=== PATIENT | male | born 1935 | race Asian ===

== ENCOUNTER 2019-11-28 19:23 | Inpatient (IN) | payer MEDICARE, MEDICAID ==
[~2019-11-28] VITALS: Ht 172.7 cm; Wt 83.0 kg
[2019-11-28 20:19] LABS: BASOPHILS % 0.6 % (0.0-2.0); HEMOGLOBIN. 13.9 g/dL (14.0-18.0); LYMPHOCYTES % 25.3 % (20.0-50.0); MEAN CORPUSCULAR HEMOGLOBIN 32.3 pg (28.0-32.0); MEAN CORPUSCULAR VOLUME 97.6 fL (80.0-94.0); MEAN PLATELET VOLUME 8.5 fl (7.4-10.4); MONOCYTES % 8.9 % (2.0-8.0); NEUTROPHILS % 64.2 % (40.0-76.0); PLATELET 218 x1000/uL (130-400); RED CELL DISTRIBUTION WIDTH 13.4 % (11.6-14.6)
[2019-11-28 20:25] LABS: CHLORIDE 108 mEq/L (98-107)
[2019-11-28 20:27] LABS: PROTHROMBIN TIME 10.9 sec (9.6-11.0)
[2019-11-28] MEDS ORDERED: SODIUM CHLORIDE 0.9% 250 ML IV ONE (21:00)
[2019-11-28] MEDS ORDERED: MORPHINE SULFATE 2 MG/ML CPJ (NOT FOR IM USE) IV PRN (22:30)
[2019-11-28] MEDS ORDERED: DOCUSATE SODIUM 100MG CAPSULE PO PRN (22:30)
[2019-11-28] MEDS ORDERED: IPRATROPIUM/ALBUTEROL 0.5-3(2.5)MG/3ML NEB HHN PRN (22:30)
[2019-11-28] MEDS ORDERED: HYDROCODONE/ACETAMINOPHEN 10/325MG TABLET PO PRN (22:30)
[2019-11-28] MEDS ORDERED: ONDANSETRON HCL 4MG/2ML INJ IV PRN (22:30)
[2019-11-28] MEDS: ENOXAPARIN 40MG/0.4ML SYR SUBCUT SCH (22:30)
[2019-11-28] MEDS ORDERED: MAGNESIUM/ALUMINUM HYDROXIDE/SIMETHICONE 30ML UDC PO PRN (22:30)
[2019-11-28] MEDS ORDERED: GUAIFENESIN 200MG/10ML SUGAR FREE UDC PO PRN (22:30)
[2019-11-28] MEDS ORDERED: DIPHENHYDRAMINE 50MG/ML VIAL IV PRN (22:30)
[2019-11-28] MEDS ORDERED: ACETAMINOPHEN 325MG TABLET PO PRN (22:30)
[2019-11-28] MEDS ORDERED: CLONIDINE 0.1MG TABLET PO PRN (22:30)
[2019-11-28] MEDS ORDERED: LORAZEPAM 2MG/ML CPJ IV PRN (22:30)
[2019-11-28] MEDS: FUROSEMIDE 40MG/4ML VIAL IVP SCH (23:10)
[2019-11-28] MEDS: DILTIAZEM HCL 30MG TABLET PO SCH (23:10)
[2019-11-28] MEDS: ENOXAPARIN 80MG/0.8ML SYR SUBCUT SCH (23:11)
[2019-11-28] MEDS ORDERED: IOHEXOL-350 100 ML BOTTLE ONE (23:16)
[2019-11-28 23:45] LABS: CLARITY URINE CLEAR (CLEAR); COLOR URINE DARK YELLOW (YELLOW); KETONES URINE NEGATIVE (NEGATIVE); LEUKOCYTE ESTERASE URINE NEGATIVE (NEGATIVE); NITRITE URINE NEGATIVE (NEGATIVE); OCCULT BLOOD URINE NEGATIVE (NEGATIVE); PH URINE 5.5 (4.5-8.0); PROTEIN URINE 2+ (NEGATIVE); SPECIFIC GRAVITY URINE 1.033 (1.005-1.030)
[2019-11-29] VITALS (12 sets, daily range): BP systolic 104–153; BP diastolic 47–85
[2019-11-29] MEDS: DILTIAZEM HCL 30MG TABLET PO SCH ×2 (06:34)
[2019-11-29] MEDS: SODIUM CHLORIDE 0.9% INJ 3ML FLUSH IVF SCH ×3 (06:35→21:01)
[2019-11-29 09:00] LABS: BASOPHILS % 0.4 % (0.0-2.0); EOSINOPHILS % 0.8 % (0.0-5.0); HEMATOCRIT. 40.6 % (42.0-52.0); HEMOGLOBIN. 13.6 g/dL (14.0-18.0); LYMPHOCYTES % 24.9 % (20.0-50.0); MEAN CORPUSCULAR HEMOGLOBIN 32.7 pg (28.0-32.0); MEAN CORPUSCULAR VOLUME 97.8 fL (80.0-94.0); MEAN PLATELET VOLUME 8.5 fl (7.4-10.4); MONOCYTES % 9.2 % (2.0-8.0); NEUTROPHILS % 64.7 % (40.0-76.0); PLATELET 219 x1000/uL (130-400); RED BLOOD CELL COUNT 4.16 mill/uL (4.7-6.1); RED CELL DISTRIBUTION WIDTH 13.2 % (11.6-14.6)
[2019-11-29 09:09] LABS: CHLORIDE 109 mEq/L (98-107)
[2019-11-29] MEDS: ENOXAPARIN 80MG/0.8ML SYR SUBCUT SCH ×2 (09:15→21:01)
[2019-11-29] MEDS: FUROSEMIDE 40MG/4ML VIAL IVP SCH ×2 (09:15→17:57)
[2019-11-29 09:21] LABS: CREATINE KINASE 187 IU/L (39-308)
[2019-11-29 09:24] LABS: CREATINE KINASE MB FRACTION 4.2 ng/mL (0.5-3.6)
[2019-11-29 10:56] LABS: HEPATITIS B SURFACE ANTIGEN NEGATIVE
[2019-11-29 11:26] LABS: HEPATITIS A AB IGM NEGATIVE (NEGATIVE)
[2019-11-29] MEDS: METOPROLOL TARTRATE 25MG TABLET PO SCH ×2 (12:30→21:00)
[2019-11-29] MEDS: DILTIAZEM HCL 60MG TABLET PO SCH ×3 (12:46→23:25)
[2019-11-29 16:26] LABS: CREATINE KINASE MB FRACTION 4.4 ng/mL (0.5-3.6)
[2019-11-29] MEDS ORDERED: DIGOXIN 500MCG/2ML AMP IV SCH (18:00)
[2019-11-30] VITALS (12 sets, daily range): BP systolic 91–121; BP diastolic 50–86
[2019-11-30] MEDS: DILTIAZEM HCL 60MG TABLET PO SCH ×3 (05:37→18:26)
[2019-11-30] MEDS: FUROSEMIDE 40MG/4ML VIAL IVP SCH (06:05)
[2019-11-30] MEDS: SODIUM CHLORIDE 0.9% INJ 3ML FLUSH IVF SCH ×3 (06:06→21:38)
[2019-11-30] MEDS: ENOXAPARIN 80MG/0.8ML SYR SUBCUT SCH ×2 (08:32→21:38)
[2019-11-30 09:31] LABS: HEMATOCRIT 38.4 % (42.0-52.0); MEAN CORPUSCULAR HEMOGLOBIN 32.9 pg (28.0-32.0); MEAN CORPUSCULAR VOLUME 97.4 fL (80.0-94.0); PLATELET 204 x1000/uL (130-400); RED BLOOD CELL COUNT 3.94 mill/uL (4.7-6.1); RED CELL DISTRIBUTION WIDTH 13.2 % (11.6-14.6)
[2019-11-30 12:59] LABS: CREATINE KINASE 250 IU/L (39-308)
[2019-11-30] MEDS ORDERED: IPRATROPIUM/ALBUTEROL 0.5-3(2.5)MG/3ML NEB HHN PRN (15:15)
[2019-11-30] MEDS ORDERED: DOCUSATE SODIUM 100MG CAPSULE PO PRN (17:00)
[2019-11-30] MEDS ORDERED: ONDANSETRON HCL 4MG/2ML INJ IV PRN (17:00)
[2019-11-30] MEDS ORDERED: MAGNESIUM/ALUMINUM HYDROXIDE/SIMETHICONE 30ML UDC PO PRN (17:00)
[2019-11-30] MEDS ORDERED: LORAZEPAM 2MG/ML CPJ IV PRN (17:00)
[2019-11-30] MEDS ORDERED: HYDROCODONE/ACETAMINOPHEN 10/325MG TABLET PO PRN (17:00)
[2019-11-30] MEDS ORDERED: CLONIDINE 0.1MG TABLET PO PRN (17:00)
[2019-11-30] MEDS ORDERED: DIPHENHYDRAMINE 50MG/ML VIAL IV PRN (17:00)
[2019-11-30] MEDS ORDERED: ACETAMINOPHEN 325MG TABLET PO PRN (17:00)
[2019-11-30] MEDS ORDERED: GUAIFENESIN 200MG/10ML SUGAR FREE UDC PO PRN (17:00)
[2019-11-30] MEDS ORDERED: MORPHINE SULFATE 2 MG/ML CPJ (NOT FOR IM USE) IV PRN (17:00)
[2019-12-01] VITALS (8 sets, daily range): BP systolic 98–119; BP diastolic 54–76
[2019-12-01] MEDS: DILTIAZEM HCL 60MG TABLET PO SCH ×3 (05:56→12:03)
[2019-12-01] MEDS: SODIUM CHLORIDE 0.9% INJ 3ML FLUSH IVF SCH ×2 (05:56→13:19)
[2019-12-01 06:53] LABS: CHLORIDE 105 mEq/L (98-107)
[2019-12-01 07:02] LABS: BASOPHILS % 0.8 % (0.0-2.0); EOSINOPHILS % 3.6 % (0.0-5.0); HEMATOCRIT. 39.2 % (42.0-52.0); HEMOGLOBIN. 13.1 g/dL (14.0-18.0); LYMPHOCYTES % 39.3 % (20.0-50.0); MEAN CORPUSCULAR HEMOGLOBIN 32.6 pg (28.0-32.0); MEAN CORPUSCULAR VOLUME 97.5 fL (80.0-94.0); MEAN PLATELET VOLUME 8.9 fl (7.4-10.4); MONOCYTES % 9.7 % (2.0-8.0); NEUTROPHILS % 46.6 % (40.0-76.0); PLATELET 197 x1000/uL (130-400); RED BLOOD CELL COUNT 4.02 mill/uL (4.7-6.1); RED CELL DISTRIBUTION WIDTH 13.2 % (11.6-14.6)
[2019-12-01] MEDS: ENOXAPARIN 80MG/0.8ML SYR SUBCUT SCH (08:36)
== END 2019-12-01 17:30 | disposition home or self-care (01) | DRG 291 ==
LOC: ER 19:23 → EDBEDREQ 19:58 → 5EST 21:43 → EDBEDREQ 21:52 → EDBEDREQTM 21:52 → ENRESERV 21:59 → 5WST 12-01 09:16
PROVIDERS: ADMIT Internal Medicine; ATTEND Internal Medicine
DX: I11.0 Hypertensive heart disease with heart failure (principal); J96.00 Acute respiratory failure, unspecified whether with hypoxia or hypercapnia; J90 Pleural effusion, not elsewhere classified; E87.2 Acidosis; E46 Unspecified protein-calorie malnutrition; N17.9 Acute kidney failure, unspecified; I31.3 Pericardial effusion (noninflammatory); R65.10 Systemic inflammatory response syndrome (SIRS) of non-infectious origin without acute organ dysfunction; I50.33 Acute on chronic diastolic (congestive) heart failure; I48.91 Unspecified atrial fibrillation; R59.0 Localized enlarged lymph nodes; R74.01 Elevation of levels of liver transaminase levels; J44.9 Chronic obstructive pulmonary disease, unspecified; I77.819 Aortic ectasia, unspecified site; M54.5 Low back pain; Z20.828 Contact with and (suspected) exposure to other viral communicable diseases; D64.9 Anemia, unspecified; M48.061 Spinal stenosis, lumbar region without neurogenic claudication; Z68.27 Body mass index [BMI] 27.0-27.9, adult; Z79.899 Other long term (current) drug therapy
CPT/HCPCS: 36415; 71045; 71275; 72148; 76604; 76700; 80048; 80053; 80076; 81003; 82550; 82553; 83605; 83880; 84145; 84484; 85025; 85027; 86705; 86709; 86803; 87340; 87426; 93005; 93306; 93970; 97161; 99291; J1160; J1200; J1650; J1940; Q9967

== ENCOUNTER 2020-04-04 11:02 | Inpatient (IN) | payer MEDICARE, MEDICAID ==
[~2020-04-04] VITALS: Ht 182.9 cm; Wt 78.3 kg
[2020-04-04 11:59] LABS: BASOPHILS % 1.2 % (0.0-2.0); EOSINOPHILS % 1.1 % (0.0-5.0); HEMATOCRIT. 41.4 % (42.0-52.0); HEMOGLOBIN. 13.1 g/dL (14.0-18.0); LYMPHOCYTES % 25.1 % (20.0-50.0); MEAN CORPUSCULAR HEMOGLOBIN 25.5 pg (28.0-32.0); MEAN CORPUSCULAR VOLUME 80.8 fL (80.0-94.0); MEAN PLATELET VOLUME 9.1 fl (7.4-10.4); MONOCYTES % 13.7 % (2.0-8.0); NEUTROPHILS % 58.9 % (40.0-76.0); PLATELET 145 x1000/uL (130-400); RED BLOOD CELL COUNT 5.12 mill/uL (4.7-6.1)
[2020-04-04 12:10] LABS: CHLORIDE 110 mEq/L (98-107)
[2020-04-04] MEDS ORDERED: FUROSEMIDE 40MG/4ML VIAL IVP ONE (12:45)
[2020-04-04] MEDS ORDERED: CLONIDINE 0.1MG TABLET PO PRN (15:00)
[2020-04-04] MEDS ORDERED: MORPHINE SULFATE 2 MG/ML CPJ (NOT FOR IM USE) IV PRN (15:00)
[2020-04-04] MEDS ORDERED: ACETAMINOPHEN 325MG TABLET PO PRN (15:00)
[2020-04-04] MEDS ORDERED: MAGNESIUM/ALUMINUM HYDROXIDE/SIMETHICONE 30ML UDC PO PRN (15:00)
[2020-04-04] MEDS ORDERED: ONDANSETRON HCL 4MG/2ML INJ IV PRN (15:00)
[2020-04-04] MEDS ORDERED: LISINOPRIL 10MG TABLET PO SCH (16:00)
[2020-04-04] MEDS: PIPERACILLIN/TAZ 3.375G PREMIX 50 ML IV SCH (16:21)
[2020-04-04] MEDS: ENOXAPARIN 80MG/0.8ML SYR SUBCUT SCH (17:05)
[2020-04-04] MEDS ORDERED: FUROSEMIDE 40MG/4ML VIAL IV SCH (17:15)
[2020-04-04 17:44] LABS: BG BASE EXCESS 0.1 mmol/L (-2.0-2.0); BG CARBOXYHEMOGLOBIN 1.6 % (0.5-1.5); BG DEOXYHEMOGLOBIN 6.2 % (0.0-5.0); BG FRACTION INSPIRED OXYGEN 21; BG HCO3 ACT 23.5 mmol/L (22.0-26.0); BG METHEMOGLOBIN 0.2 % (0.0-1.5); BG OXYGEN SATURATION 93.7 % (92.0-98.5); BG PCO2 34.3 mmHg (35.0-45.0); BG PH 7.453 (7.350-7.450); BG PO2 68.8 mmHg (75.0-100.0); BG SAMPLE SITE RIGHT RADIAL; BG TOTAL HEMOGLOBIN 13.6 g/dL (12.0-18.0); BG VENT MODE ROOM AIR
[2020-04-04] MEDS: POTASSIUM CHLORIDE 20MEQ TABLET SR PO SCH (18:40)
[2020-04-04] MEDS: FUROSEMIDE 40MG/4ML VIAL IV SCH (20:00)
[2020-04-04] MEDS: CARVEDILOL 3.125 MG TABLET PO SCH (21:00)
[2020-04-04] MEDS ORDERED: DILTIAZEM HCL 30MG TABLET PO SCH (22:00)
[2020-04-05] MEDS: PIPERACILLIN/TAZ 3.375G PREMIX 50 ML IV SCH
[2020-04-05 04:36] VITALS: BP 134/85
[2020-04-05] MEDS: ENOXAPARIN 80MG/0.8ML SYR SUBCUT SCH ×2 (05:18→18:14)
[2020-04-05 08:00] VITALS: BP 112/55
[2020-04-05] MEDS: FUROSEMIDE 40MG/4ML VIAL IV SCH (08:11)
[2020-04-05] MEDS: CARVEDILOL 3.125 MG TABLET PO SCH ×2 (08:51→21:00)
[2020-04-05] MEDS: POTASSIUM CHLORIDE 20MEQ TABLET SR PO SCH (08:51)
[2020-04-05] MEDS: PIPERACILLIN/TAZOBACTAM 3.375 G in DEXT 5% WATER 100 ML IV SCH ×3 (08:51→23:27)
[2020-04-05] MEDS ORDERED: FUROSEMIDE 40MG/4ML VIAL IV SCH (09:00)
[2020-04-05 10:00] VITALS: BP 125/80
[2020-04-05 10:24] LABS: BASOPHILS % 0.8 % (0.0-2.0); EOSINOPHILS % 1.4 % (0.0-5.0); HEMATOCRIT. 41.4 % (42.0-52.0); HEMOGLOBIN. 13.1 g/dL (14.0-18.0); LYMPHOCYTES % 30.5 % (20.0-50.0); MEAN CORPUSCULAR HEMOGLOBIN 25.8 pg (28.0-32.0); MEAN CORPUSCULAR VOLUME 81.6 fL (80.0-94.0); MEAN PLATELET VOLUME 9.8 fl (7.4-10.4); MONOCYTES % 9.5 % (2.0-8.0); NEUTROPHILS % 57.8 % (40.0-76.0); PLATELET 166 x1000/uL (130-400); RED BLOOD CELL COUNT 5.08 mill/uL (4.7-6.1); RED CELL DISTRIBUTION WIDTH 19.8 % (11.6-14.6)
[2020-04-05 10:29] LABS: INR 1.5; PROTHROMBIN TIME 15.1 sec (9.6-11.0)
[2020-04-05 10:37] LABS: CHLORIDE 109 mEq/L (98-107)
[2020-04-05 10:44] LABS: LDL CHOLESTEROL 74 mg/dL (5-100)
[2020-04-05 10:45] LABS: HDL CHOLESTEROL 25 mg/dL (40-59)
[2020-04-05 11:00] LABS: DIGOXIN 0.5 ng/mL (0.9-2.0)
[2020-04-05 11:04] LABS: VITAMIN B12 SERUM >2000 pg/mL pg/mL (211-911)
[2020-04-05 12:00] VITALS: BP 105/67
[2020-04-05] MEDS: LACTULOSE 20G/30ML UDC PO SCH ×2 (14:49→21:08)
[2020-04-05 16:00] VITALS: BP 103/98
[2020-04-05 20:00] VITALS: BP 109/73
[2020-04-06] VITALS: BP 117/83
[2020-04-06 04:00] VITALS: BP 117/75
[2020-04-06] MEDS: ENOXAPARIN 80MG/0.8ML SYR SUBCUT SCH (05:23)
[2020-04-06] MEDS: LACTULOSE 20G/30ML UDC PO SCH ×3 (05:23→21:13)
[2020-04-06 05:51] LABS: BASOPHILS % 1.3 % (0.0-2.0); EOSINOPHILS % 1.8 % (0.0-5.0); HEMATOCRIT. 40.4 % (42.0-52.0); HEMOGLOBIN. 12.9 g/dL (14.0-18.0); LYMPHOCYTES % 25.3 % (20.0-50.0); MEAN CORPUSCULAR HEMOGLOBIN 25.9 pg (28.0-32.0); MEAN CORPUSCULAR VOLUME 81.4 fL (80.0-94.0); MEAN PLATELET VOLUME 9.8 fl (7.4-10.4); MONOCYTES % 11.4 % (2.0-8.0); NEUTROPHILS % 60.2 % (40.0-76.0); PLATELET 151 x1000/uL (130-400); RED BLOOD CELL COUNT 4.96 mill/uL (4.7-6.1); RED CELL DISTRIBUTION WIDTH 20.2 % (11.6-14.6)
[2020-04-06 05:54] LABS: INR 1.4; PROTHROMBIN TIME 14.2 sec (9.6-11.0)
[2020-04-06 09:00] VITALS: BP 110/65
[2020-04-06] MEDS: POTASSIUM CHLORIDE 20MEQ TABLET SR PO SCH (09:00)
[2020-04-06] MEDS ORDERED: SODIUM BICARBONATE 4% (2.4MEQ) 5ML VIAL IV ONE (09:42)
[2020-04-06] MEDS ORDERED: POTASSIUM CHLORIDE 20MEQ TABLET SR PO NR (10:00)
[2020-04-06 10:10] LABS: ANTI-NUCLEAR ANTIBODIES DIRECT Negative (Negative)
[2020-04-06] MEDS: PIPERACILLIN/TAZOBACTAM 3.375 G in DEXT 5% WATER 100 ML IV SCH ×2 (11:48→16:57)
[2020-04-06] MEDS: CARVEDILOL 3.125 MG TABLET PO SCH ×2 (11:49→21:12)
[2020-04-06 12:00] VITALS: BP 114/64
[2020-04-06] MEDS ORDERED: ALBUMIN HUMAN 25GM/100ML (25%) IV NR (12:00)
[2020-04-06 13:10] LABS: A/G RATIO 0.8 (0.7-1.7); ALBUMIN 2.7 g/dL (2.9-4.4); ALPHA-1-GLOBULIN 0.3 g/dL (0.0-0.4); ALPHA-2-GLOBULIN 0.5 g/dL (0.4-1.0); BETA GLOBULIN 1.2 g/dL (0.7-1.3); GAMMA GLOBULINS 1.5 g/dL (0.4-1.8); GLOBULIN TOTAL 3.5 g/dL (2.2-3.9); M-SPIKE Not Observed g/dL (Not Observed); TOTAL PROTEIN SERUM 6.2 g/dL (6.0-8.5)
[2020-04-06] MEDS ORDERED: TUBERCULIN,PURIF.PROT.DERIV. 5 TU/0.1 ML SYR ID ONE (13:45)
[2020-04-06 16:00] VITALS: BP 101/68
[2020-04-06 20:00] VITALS: BP 118/60
[2020-04-06] MEDS ORDERED: ENOXAPARIN 60MG/0.6ML SYR SUBCUT NR (21:00)
[2020-04-07] VITALS: BP 112/79
[2020-04-07] MEDS: PIPERACILLIN/TAZOBACTAM 3.375 G in DEXT 5% WATER 100 ML IV SCH ×2 (00:14→08:58)
[2020-04-07 04:00] VITALS: BP 136/73
[2020-04-07] MEDS: LACTULOSE 20G/30ML UDC PO SCH ×2 (05:49→13:35)
[2020-04-07 06:57] LABS: BASOPHILS % 1.2 % (0.0-2.0); EOSINOPHILS % 1.4 % (0.0-5.0); HEMATOCRIT. 40.2 % (42.0-52.0); HEMOGLOBIN. 12.6 g/dL (14.0-18.0); LYMPHOCYTES % 29.6 % (20.0-50.0); MEAN CORPUSCULAR HEMOGLOBIN 25.3 pg (28.0-32.0); MEAN PLATELET VOLUME 9.8 fl (7.4-10.4); MONOCYTES % 10.8 % (2.0-8.0); PLATELET 150 x1000/uL (130-400); RED BLOOD CELL COUNT 4.97 mill/uL (4.7-6.1); RED CELL DISTRIBUTION WIDTH 19.8 % (11.6-14.6)
[2020-04-07 07:01] LABS: CHLORIDE 111 mEq/L (98-107)
[2020-04-07 08:00] VITALS: BP 111/78
[2020-04-07] MEDS: CARVEDILOL 3.125 MG TABLET PO SCH (08:57)
[2020-04-07] MEDS: POTASSIUM CHLORIDE 20MEQ TABLET SR PO SCH (08:57)
[2020-04-07] MEDS ORDERED: ENOXAPARIN 80MG/0.8ML SYR SUBCUT SCH (09:00)
[2020-04-07] MEDS ORDERED: MULTIVITAMINS,THER W-MINERALS TABLET PO SCH (11:00)
[2020-04-07 12:00] VITALS: BP 99/68
[2020-04-07 13:46] VITALS: BP 99/68
[2020-04-07 18:54] LABS: PHOSPHORUS 3.8 mg/dL (2.5-4.9)
[2020-04-08 09:10] LABS: HIV SCREEN 4G Non Reactive (Non Reactive)
[2020-04-08 17:06] LABS: QFT MITOGEN VALUE 9.78 IU/mL (.); QFT TB GOLD PLUS Negative (Negative); QFT TB1 AG VALUE 0.34 IU/mL (.)
[2020-04-09 17:09] LABS: ANGIOTENSION CONVERTING ENZYME 80 U/L (14-82)
[2020-04-10 17:06] LABS: ACTIN (SMOOTH MUSCLE) ANTIBODY 22 Units (0-19); ANTI-MYELOPEROXIDASE AB < 9.0 U/mL (0.0-9.0); ANTI-PROTEINASE 3 ABS < 3.5 U/mL (0.0-3.5)
[2020-04-11 13:07] LABS: ATYPICAL P-ANCA <1:20 titer (Neg:<1:20); CYTOPLASMIC C-ANCA <1:20 titer (Neg:<1:20); PERINUCLEAR P-ANCA <1:20 titer (Neg:<1:20)
[2020-04-12 04:09] LABS: CYC CITRULLINATED PEP IgG/IgA 6 units (0-19)
[2020-04-20] MEDS ORDERED: SPIR25TA PO (12:16)
[2020-04-20] MEDS ORDERED: FURO-151 MT (12:16)
[2020-05-02] MEDS ORDERED: SULF1TAB48 PO ×2 (12:20→12:43)
== END 2020-04-07 14:00 | disposition home health service (06) | DRG 291 ==
LOC: ER 11:02 → MICUSO 13:42 → 5EST 04-05 02:18 → 8WST 04-05 11:20
PROVIDERS: ADMIT Hospitalist; ATTEND Hospitalist
PROC: 0W993ZZ Drainage of Right Pleural Cavity, Percutaneous Approach (ICD-10-PCS; principal; 2020-04-06)
DX: I11.0 Hypertensive heart disease with heart failure (principal); J96.01 Acute respiratory failure with hypoxia; E43 Unspecified severe protein-calorie malnutrition; N17.9 Acute kidney failure, unspecified; I31.3 Pericardial effusion (noninflammatory); D68.59 Other primary thrombophilia; D68.4 Acquired coagulation factor deficiency; R18.8 Other ascites; J91.8 Pleural effusion in other conditions classified elsewhere; I50.33 Acute on chronic diastolic (congestive) heart failure; J44.9 Chronic obstructive pulmonary disease, unspecified; K75.81 Nonalcoholic steatohepatitis (NASH); I48.91 Unspecified atrial fibrillation; I27.81 Cor pulmonale (chronic); I25.10 Atherosclerotic heart disease of native coronary artery without angina pectoris; K74.60 Unspecified cirrhosis of liver; T50.2X5A Adverse effect of carbonic-anhydrase inhibitors, benzothiadiazides and other diuretics, initial encounter; D64.9 Anemia, unspecified; K80.20 Calculus of gallbladder without cholecystitis without obstruction; Z20.822 Contact with and (suspected) exposure to COVID-19; Z68.23 Body mass index [BMI] 23.0-23.9, adult; Z79.899 Other long term (current) drug therapy; Z79.01 Long term (current) use of anticoagulants; R59.0 Localized enlarged lymph nodes
CPT/HCPCS: 32555; 36415; 71045; 71250; 76700; 80048; 80053; 80061; 80162; 82040; 82105; 82140; 82164; 82248; 82378; 82390; 82607; 82728; 82962; 83520; 83540; 83550; 83615; 83735; 83880; 84100; 84153; 84155; 84165; 84484; 85025; 86038; 86160; 86200; 86256; 86301; 86431; 86480; 87389; 87426; 88108; 88312; 90585; 93005; 93306; 93970; 96372; 99285; J1650; J1940; J2543; J3490; J7060; P9047; A4315; G0103

== ENCOUNTER 2020-04-11 09:22 | Inpatient (IN) | payer MEDICARE, MEDICAID ==
[2020-04-11] VITALS (55 sets, daily range): BP systolic 66–164; BP diastolic 22–105
[~2020-04-11] VITALS: Ht 188 cm; Wt 83.5 kg
[2020-04-11] MEDS ORDERED: BETAMETHASONE ACET/BETAMET 30 MG/5 ML VIAL IM ONE (10:07)
[2020-04-11] MEDS ORDERED: BACITRACIN 50,000 UNITS/VIAL ONE (10:08)
[2020-04-11] MEDS ORDERED: TETRACAINE/BENZOCAINE/BUTAMBEN 20 GM SPRAY MM ONE (10:09)
[2020-04-11 10:18] LABS: BASOPHILS % 1.1 % (0.0-2.0); EOSINOPHILS % 1.5 % (0.0-5.0); HEMATOCRIT. 41.6 % (42.0-52.0); HEMOGLOBIN. 12.8 g/dL (14.0-18.0); LYMPHOCYTES % 29.3 % (20.0-50.0); MEAN CORPUSCULAR VOLUME 81.2 fL (80.0-94.0); MEAN PLATELET VOLUME 9.3 fl (7.4-10.4); MONOCYTES % 10.6 % (2.0-8.0); NEUTROPHILS % 57.5 % (40.0-76.0); PLATELET 146 x1000/uL (130-400); RED BLOOD CELL COUNT 5.13 mill/uL (4.7-6.1); RED CELL DISTRIBUTION WIDTH 20.7 % (11.6-14.6)
[2020-04-11 10:19] LABS: CHLORIDE 109 mEq/L (98-107)
[2020-04-11 10:24] LABS: INR 1.3; PARTIAL THROMBOPLASTIN TIME 33.7 sec (23.4-31.0); PROTHROMBIN TIME 13.3 sec (9.6-11.0)
[2020-04-11] MEDS ORDERED: MORPHINE SULFATE/PF 1MG/ML 10ML AMP ONE (11:22)
[2020-04-11] MEDS ORDERED: ROCURONIUM BROMIDE 10MG/ML VIAL 5ML IV ONE (11:36)
[2020-04-11] MEDS ORDERED: CEFAZOLIN SODIUM 1000MG/VIAL ONE (12:20)
[2020-04-11] MEDS ORDERED: VECURONIUM BROMIDE 10 MG/VIAL IV ONE (12:21)
[2020-04-11] MEDS ORDERED: AMIODARONE HCL 50MG/ML 3ML VIAL IV ONE (12:25)
[2020-04-11] MEDS ORDERED: ALBUMIN HUMAN 12.5G/250ML (5%) IV ONE (12:25)
[2020-04-11] MEDS ORDERED: CALCIUM CHLORIDE 1GM/10ML SYR IV ONE (12:39)
[2020-04-11] MEDS ORDERED: SKIN ADHESIVE 0.7 GM EA TOP ONE (12:54)
[2020-04-11] MEDS ORDERED: NEOSTIGMINE METHYLSULFATE 1MG/ML 10 ML VIAL ONE (12:54)
[2020-04-11] MEDS ORDERED: GLYCOPYRROLATE 0.2 MG/ML 2ML VIAL ONE (12:54)
[2020-04-11] MEDS ORDERED: KETOROLAC 30MG/ML VIAL ONE (12:55)
[2020-04-11] MEDS ORDERED: SODIUM CHLORIDE 0.9% 10ML VIAL ONE (12:57)
[2020-04-11] MEDS ORDERED: ACETAMINOPHEN 325MG TABLET PO PRN (13:15)
[2020-04-11] MEDS ORDERED: ONDANSETRON HCL 4MG/2ML INJ IV PRN (13:15)
[2020-04-11] MEDS ORDERED: MAGNESIUM SULFATE 3 GM in DEXT 5% WATER 100 ML IV PRN (13:15)
[2020-04-11] MEDS ORDERED: ALBUMIN HUMAN 25GM/100ML (25%) IV PRN (13:15)
[2020-04-11] MEDS ORDERED: CALCIUM CHLORIDE 3,000 MG in DEXT 5% WATER 250 ML IV PRN (13:15)
[2020-04-11] MEDS ORDERED: MAGNESIUM 1 G PREMIX 100 ML IV PRN (13:15)
[2020-04-11] MEDS ORDERED: MAGNESIUM 2 G PREMIX 50 ML IV PRN (13:15)
[2020-04-11] MEDS ORDERED: NALOXONE HCL 0.4 MG/ML 1ML VIAL ONE (13:15)
[2020-04-11] MEDS ORDERED: DIGOXIN 500MCG/2ML AMP IV PRN (13:45)
[2020-04-11] MEDS ORDERED: DIGOXIN 500MCG/2ML AMP IV ONE (13:45)
[2020-04-11] MEDS: IPRATROPIUM/ALBUTEROL 0.5-3(2.5)MG/3ML NEB HHN SCH ×3 (13:46→21:56)
[2020-04-11] MEDS ORDERED: CEFAZOLIN 1000MG PREMIX 50 ML IV SCH (14:30)
[2020-04-11] MEDS ORDERED: FUROSEMIDE 40MG/4ML VIAL IVP NR ×2 (14:45→20:00)
[2020-04-11] MEDS: FAMOTIDINE 20MG/2ML VIAL IV SCH (14:48)
[2020-04-11 15:55] LABS: BASOPHILS % 0.5 % (0.0-2.0); EOSINOPHILS % 0.7 % (0.0-5.0); HEMATOCRIT. 39.5 % (42.0-52.0); HEMOGLOBIN. 12.3 g/dL (14.0-18.0); LYMPHOCYTES % 28.6 % (20.0-50.0); MEAN CORPUSCULAR HEMOGLOBIN 25.5 pg (28.0-32.0); MEAN CORPUSCULAR VOLUME 82.2 fL (80.0-94.0); MEAN PLATELET VOLUME 9.8 fl (7.4-10.4); MONOCYTES % 2.6 % (2.0-8.0); NEUTROPHILS % 67.6 % (40.0-76.0); PLATELET 140 x1000/uL (130-400); RED CELL DISTRIBUTION WIDTH 20.5 % (11.6-14.6)
[2020-04-11 16:42] LABS: BG BASE EXCESS -8.4 mmol/L (-2.0-2.0); BG CARBOXYHEMOGLOBIN 1.3 % (0.5-1.5); BG DEOXYHEMOGLOBIN 2.2 % (0.0-5.0); BG FRACTION INSPIRED OXYGEN 60; BG HCO3 ACT 17.9 mmol/L (22.0-26.0); BG METHEMOGLOBIN 0.3 % (0.0-1.5); BG OXYGEN SATURATION 97.8 % (92.0-98.5); BG OXYHEMOGLOBIN 96.2 % (94.0-97.0); BG PCO2 39.6 mmHg (35.0-45.0); BG PH 7.272 (7.350-7.450); BG PO2 116.1 mmHg (75.0-100.0); BG SAMPLE SITE ALINE; BG TOTAL HEMOGLOBIN 11.9 g/dL (12.0-18.0); BG VENT MODE MASK - SIMPLE
[2020-04-11] MEDS: CEFAZOLIN 1000MG PREMIX 50 ML IV SCH (17:12)
[2020-04-11] MEDS: DOCUSATE SODIUM 100MG CAPSULE PO SCH (17:19)
[2020-04-11] MEDS: BACITRACIN 15GM TUBE TOP SCH (17:20)
[2020-04-11] MEDS ORDERED: HYDROCODONE/ACETAMINOPHEN 5/325MG TABLET PO PRN (17:30)
[2020-04-11] MEDS ORDERED: MAGNESIUM 1 G PREMIX 100 ML IV NR (18:30)
[2020-04-11] MEDS: DOPAMINE 400MG/250ML PREMIX 250 ML IV SCH (18:58)
[2020-04-11] MEDS ORDERED: METOLAZONE 5MG TABLET PO NR (19:30)
[2020-04-11] MEDS ORDERED: METOLAZONE 10MG TABLET PO NR (19:30)
[2020-04-11] MEDS ORDERED: CALCIUM CHLORIDE 3,000 MG in DEXT 5% WATER 250 ML IV NR (20:00)
[2020-04-11] MEDS: ALBUMIN HUMAN 25GM/100ML (25%) IV SCH (21:16)
[2020-04-12] VITALS (100 sets, daily range): BP systolic -4–258; BP diastolic -8–257
[2020-04-12] MEDS: ALBUMIN HUMAN 25GM/100ML (25%) IV SCH ×4 (00:49→22:13)
[2020-04-12] MEDS ORDERED: DIGOXIN 500MCG/2ML AMP IV PRN (01:00)
[2020-04-12] MEDS: CEFAZOLIN 1000MG PREMIX 50 ML IV SCH ×2 (01:24→08:50)
[2020-04-12] MEDS: IPRATROPIUM/ALBUTEROL 0.5-3(2.5)MG/3ML NEB HHN SCH ×6 (02:39→21:05)
[2020-04-12 06:01] LABS: BASOPHILS % 0.1 % (0.0-2.0); HEMATOCRIT. 35.8 % (42.0-52.0); HEMOGLOBIN. 11.1 g/dL (14.0-18.0); LYMPHOCYTES % 7.5 % (20.0-50.0); MEAN CORPUSCULAR HEMOGLOBIN 25.2 pg (28.0-32.0); MEAN CORPUSCULAR VOLUME 81.2 fL (80.0-94.0); MEAN PLATELET VOLUME 9.7 fl (7.4-10.4); NEUTROPHILS % 85.4 % (40.0-76.0); PLATELET 153 x1000/uL (130-400); RED BLOOD CELL COUNT 4.41 mill/uL (4.7-6.1); RED CELL DISTRIBUTION WIDTH 20.6 % (11.6-14.6)
[2020-04-12] MEDS: DOCUSATE SODIUM 100MG CAPSULE PO SCH ×2 (08:45→17:38)
[2020-04-12] MEDS: FAMOTIDINE 20MG/2ML VIAL IV SCH (08:45)
[2020-04-12] MEDS: BACITRACIN 15GM TUBE TOP SCH ×3 (08:50→17:00)
[2020-04-12] MEDS ORDERED: PNEUMOCOCCAL 23-VAL P-SAC VAC 0.5 ML IM ONE (09:00)
[2020-04-12 09:36] LABS: BG BASE EXCESS -3.7 mmol/L (-2.0-2.0); BG CARBOXYHEMOGLOBIN 1.1 % (0.5-1.5); BG DEOXYHEMOGLOBIN 3.1 % (0.0-5.0); BG FRACTION INSPIRED OXYGEN 60; BG HCO3 ACT 20.1 mmol/L (22.0-26.0); BG METHEMOGLOBIN 0.2 % (0.0-1.5); BG OXYGEN SATURATION 96.9 % (92.0-98.5); BG OXYHEMOGLOBIN 95.6 % (94.0-97.0); BG PH 7.415 (7.350-7.450); BG PO2 90.2 mmHg (75.0-100.0); BG SAMPLE SITE ALINE; BG VENT MODE MASK - SIMPLE
[2020-04-12] MEDS ORDERED: FUROSEMIDE 40MG/4ML VIAL IVP SCH (12:00)
[2020-04-12] MEDS ORDERED: APIXABAN 2.5 MG TABLET PO SCH (14:00)
[2020-04-12] MEDS: DILTIAZEM HCL 30MG TABLET PO SCH ×2 (15:28→22:12)
[2020-04-12] MEDS ORDERED: ENOXAPARIN 40MG/0.4ML SYR SUBCUT ONE (17:00)
[2020-04-12] MEDS ORDERED: ENOXAPARIN 80MG/0.8ML SYR SUBCUT ONE (17:00)
[2020-04-12] MEDS: DOPAMINE 400MG/250ML PREMIX 250 ML IV SCH (20:51)
[2020-04-12 22:06] LABS: BG BASE EXCESS -1.1 mmol/L (-2.0-2.0); BG CARBOXYHEMOGLOBIN 1.1 % (0.5-1.5); BG DEOXYHEMOGLOBIN 2.4 % (0.0-5.0); BG FRACTION INSPIRED OXYGEN 40; BG METHEMOGLOBIN 0.3 % (0.0-1.5); BG OXYGEN SATURATION 97.6 % (92.0-98.5); BG OXYHEMOGLOBIN 96.2 % (94.0-97.0); BG PCO2 31.6 mmHg (35.0-45.0); BG PH 7.461 (7.350-7.450); BG PO2 97.2 mmHg (75.0-100.0); BG SAMPLE SITE ALINE; BG TOTAL HEMOGLOBIN 11.6 g/dL (12.0-18.0); BG VENT MODE NASAL CANNULA
[2020-04-13] VITALS (112 sets, daily range): BP systolic 77–273; BP diastolic 42–201
[2020-04-13] MEDS: IPRATROPIUM/ALBUTEROL 0.5-3(2.5)MG/3ML NEB HHN SCH ×6 (00:41→22:02)
[2020-04-13] MEDS ORDERED: FUROSEMIDE 40MG/4ML VIAL IVP NR ×2 (01:00→10:15)
[2020-04-13] MEDS: ALBUMIN HUMAN 25GM/100ML (25%) IV SCH ×2 (01:43→05:24)
[2020-04-13] MEDS: DILTIAZEM HCL 30MG TABLET PO SCH ×3 (06:15→22:00)
[2020-04-13 06:22] LABS: HEMATOCRIT. 34.7 % (42.0-52.0); HEMOGLOBIN. 11.1 g/dL (14.0-18.0); MEAN CORPUSCULAR HEMOGLOBIN 25.5 pg (28.0-32.0); MEAN CORPUSCULAR VOLUME 79.6 fL (80.0-94.0); MEAN PLATELET VOLUME 9.3 fl (7.4-10.4); PLATELET 121 x1000/uL (130-400); RED BLOOD CELL COUNT 4.36 mill/uL (4.7-6.1); RED CELL DISTRIBUTION WIDTH 20.8 % (11.6-14.6)
[2020-04-13 06:24] LABS: CHLORIDE 99 mEq/L (98-107)
[2020-04-13 06:31] LABS: PHOSPHORUS 3.3 mg/dL (2.5-4.9)
[2020-04-13] MEDS: TAMSULOSIN HCL 0.4MG SR CAPSULE PO SCH ×2 (08:29→21:42)
[2020-04-13] MEDS: DOCUSATE SODIUM 100MG CAPSULE PO SCH ×2 (08:30→16:40)
[2020-04-13] MEDS: FAMOTIDINE 20MG/2ML VIAL IV SCH (08:30)
[2020-04-13] MEDS ORDERED: POTASSIUM CHLORIDE INJ 60 MEQ in DEXT 5% WATER 500 ML IV SCH (09:00)
[2020-04-13] MEDS ORDERED: MAGNESIUM 2 G PREMIX 50 ML IV SCH (09:00)
[2020-04-13 09:51] LABS: BG BASE EXCESS 3.3 mmol/L (-2.0-2.0); BG CARBOXYHEMOGLOBIN 0.8 % (0.5-1.5); BG DEOXYHEMOGLOBIN 6.3 % (0.0-5.0); BG FRACTION INSPIRED OXYGEN 28; BG HCO3 ACT 26.5 mmol/L (22.0-26.0); BG OXYGEN SATURATION 93.6 % (92.0-98.5); BG OXYHEMOGLOBIN 92.9 % (94.0-97.0); BG PCO2 35.1 mmHg (35.0-45.0); BG PH 7.495 (7.350-7.450); BG PO2 67.4 mmHg (75.0-100.0); BG SAMPLE SITE ALINE; BG TOTAL HEMOGLOBIN 11.3 g/dL (12.0-18.0); BG VENT MODE NASAL CANNULA
[2020-04-13] MEDS ORDERED: ALBUMIN HUMAN 25GM/100ML (25%) IV NR (10:15)
[2020-04-13] MEDS ORDERED: METOLAZONE 5MG TABLET PO NR (10:20)
[2020-04-13] MEDS: MIDODRINE HCL 5MG TABLET PO SCH ×3 (10:21→21:43)
[2020-04-13] MEDS ORDERED: METOLAZONE 10MG TABLET PO NR (11:00)
[2020-04-13] MEDS: BACITRACIN 15GM TUBE TOP SCH ×2 (11:21→16:42)
[2020-04-13] MEDS: GUAIFENESIN 600MG ER TABLET PO SCH ×2 (11:23→21:41)
[2020-04-13] MEDS ORDERED: MIDODRINE HCL 5MG TABLET PO NR (16:30)
[2020-04-13 16:38] LABS: PLATELET ESTIMATE SLIGHTLY DECREASED
[2020-04-13] MEDS: APIXABAN 2.5 MG TABLET PO SCH (16:40)
[2020-04-14] VITALS (91 sets, daily range): BP systolic 72–138; BP diastolic 44–76
[2020-04-14] MEDS ORDERED: MINERAL OIL 30ML BOTTLE PO NR
[2020-04-14] MEDS: DOPAMINE 400MG/250ML PREMIX 250 ML IV SCH (01:34)
[2020-04-14] MEDS: IPRATROPIUM/ALBUTEROL 0.5-3(2.5)MG/3ML NEB HHN SCH ×4 (01:56→20:54)
[2020-04-14] MEDS: MIDODRINE HCL 5MG TABLET PO SCH ×3 (05:27→21:20)
[2020-04-14] MEDS: DILTIAZEM HCL 30MG TABLET PO SCH ×3 (05:28→21:19)
[2020-04-14 05:33] LABS: BG BASE EXCESS 3.9 mmol/L (-2.0-2.0); BG CARBOXYHEMOGLOBIN 0.8 % (0.5-1.5); BG DEOXYHEMOGLOBIN 3.3 % (0.0-5.0); BG FRACTION INSPIRED OXYGEN 28; BG HCO3 ACT 27.1 mmol/L (22.0-26.0); BG METHEMOGLOBIN 0.2 % (0.0-1.5); BG OXYGEN SATURATION 96.7 % (92.0-98.5); BG OXYHEMOGLOBIN 95.7 % (94.0-97.0); BG PCO2 35.9 mmHg (35.0-45.0); BG PH 7.496 (7.350-7.450); BG PO2 88.4 mmHg (75.0-100.0); BG TOTAL HEMOGLOBIN 11.9 g/dL (12.0-18.0); BG VENT MODE NASAL CANNULA
[2020-04-14 05:50] LABS: BASOPHILS % 0.1 % (0.0-2.0); EOSINOPHILS % 0.4 % (0.0-5.0); HEMATOCRIT. 35.7 % (42.0-52.0); HEMOGLOBIN. 11.4 g/dL (14.0-18.0); LYMPHOCYTES % 8.1 % (20.0-50.0); MEAN CORPUSCULAR HEMOGLOBIN 25.6 pg (28.0-32.0); MEAN CORPUSCULAR VOLUME 80.3 fL (80.0-94.0); MONOCYTES % 8.2 % (2.0-8.0); NEUTROPHILS % 83.2 % (40.0-76.0); PLATELET 113 x1000/uL (130-400); RED BLOOD CELL COUNT 4.45 mill/uL (4.7-6.1)
[2020-04-14 05:53] LABS: CHLORIDE 99 mEq/L (98-107)
[2020-04-14 06:00] LABS: PHOSPHORUS 2.8 mg/dL (2.5-4.9)
[2020-04-14] MEDS ORDERED: KCL 20MEQ/100ML PREMIX 100 ML IV ONE (06:45)
[2020-04-14] MEDS ORDERED: MAGNESIUM 2 G PREMIX 50 ML IV SCH (08:00)
[2020-04-14] MEDS ORDERED: POTASSIUM CHLORIDE INJ 40 MEQ in DEXT 5% WATER 250 ML IV SCH (08:00)
[2020-04-14] MEDS: DOCUSATE SODIUM 100MG CAPSULE PO SCH ×2 (08:31→17:55)
[2020-04-14] MEDS: APIXABAN 2.5 MG TABLET PO SCH ×2 (08:31→17:55)
[2020-04-14] MEDS: FAMOTIDINE 20MG/2ML VIAL IV SCH (08:31)
[2020-04-14] MEDS: GUAIFENESIN 600MG ER TABLET PO SCH ×2 (08:31→21:20)
[2020-04-14] MEDS: TAMSULOSIN HCL 0.4MG SR CAPSULE PO SCH ×2 (08:32→21:19)
[2020-04-14] MEDS: BACITRACIN 15GM TUBE TOP SCH ×2 (08:33→17:55)
[2020-04-14] MEDS ORDERED: LIDOCAINE HCL 1% 20ML VIAL (Pyxis) INJ INL SCH (12:00)
[2020-04-14] MEDS ORDERED: LIDOCAINE/PRILOCAINE CREAM 5 GM TUBE TOP NR (12:00)
[2020-04-14] MEDS ORDERED: LIDOCAINE 5% PATCH TOP SCH (17:30)
[2020-04-14] MEDS ORDERED: TRAMADOL 50MG TABLET PO PRN (17:30)
[2020-04-15] VITALS (38 sets, daily range): BP systolic 90–130; BP diastolic 38–100
[2020-04-15] MEDS: IPRATROPIUM/ALBUTEROL 0.5-3(2.5)MG/3ML NEB HHN SCH ×4 (00:59→13:02)
[2020-04-15] MEDS: DILTIAZEM HCL 30MG TABLET PO SCH ×2 (05:12→13:34)
[2020-04-15] MEDS: MIDODRINE HCL 5MG TABLET PO SCH ×2 (05:13→13:33)
[2020-04-15 05:27] LABS: BASOPHILS % 0.3 % (0.0-2.0); EOSINOPHILS % 3.2 % (0.0-5.0); HEMATOCRIT. 36.8 % (42.0-52.0); HEMOGLOBIN. 11.5 g/dL (14.0-18.0); LYMPHOCYTES % 14.6 % (20.0-50.0); MEAN CORPUSCULAR HEMOGLOBIN 24.9 pg (28.0-32.0); MEAN CORPUSCULAR VOLUME 79.6 fL (80.0-94.0); MEAN PLATELET VOLUME 9.9 fl (7.4-10.4); NEUTROPHILS % 72.9 % (40.0-76.0); PLATELET 124 x1000/uL (130-400); RED BLOOD CELL COUNT 4.62 mill/uL (4.7-6.1); RED CELL DISTRIBUTION WIDTH 21.5 % (11.6-14.6)
[2020-04-15 05:30] LABS: PHOSPHORUS 3.3 mg/dL (2.5-4.9)
[2020-04-15] MEDS: DOCUSATE SODIUM 100MG CAPSULE PO SCH (09:01)
[2020-04-15] MEDS: FAMOTIDINE 20MG/2ML VIAL IV SCH (09:01)
[2020-04-15] MEDS: BACITRACIN 15GM TUBE TOP SCH (09:02)
[2020-04-15] MEDS: GUAIFENESIN 600MG ER TABLET PO SCH (09:02)
[2020-04-15] MEDS: APIXABAN 2.5 MG TABLET PO SCH (09:02)
[2020-04-15] MEDS: TAMSULOSIN HCL 0.4MG SR CAPSULE PO SCH (09:02)
[2020-04-15] MEDS ORDERED: SPIRONOLACTONE 25MG TABLET PO SCH (11:45)
[2020-04-15] MEDS ORDERED: FUROSEMIDE 40MG/4ML VIAL IVP SCH (12:00)
[2020-04-15] MEDS ORDERED: TAMS-11 PO (12:25)
[2020-04-15] MEDS ORDERED: LIDO700A30 TOP (12:25)
[2020-04-15] MEDS ORDERED: APIX2.5T PO (12:25)
[2020-04-15] MEDS ORDERED: TRAM50TA3 PO (12:25)
[2020-04-15] MEDS ORDERED: DILT30TA38 PO (12:25)
[2020-04-15] MEDS ORDERED: DOCU-150 PO (12:25)
[2020-04-15 13:06] LABS: BG BASE EXCESS 3.4 mmol/L (-2.0-2.0); BG CARBOXYHEMOGLOBIN 1.3 % (0.5-1.5); BG DEOXYHEMOGLOBIN 4.4 % (0.0-5.0); BG FRACTION INSPIRED OXYGEN 21; BG HCO3 ACT 25.9 mmol/L (22.0-26.0); BG METHEMOGLOBIN 0.2 % (0.0-1.5); BG OXYGEN SATURATION 95.5 % (92.0-98.5); BG OXYHEMOGLOBIN 94.1 % (94.0-97.0); BG PCO2 32.7 mmHg (35.0-45.0); BG PH 7.516 (7.350-7.450); BG PO2 78.4 mmHg (75.0-100.0); BG SAMPLE SITE RIGHT RADIAL; BG TOTAL HEMOGLOBIN 12.9 g/dL (12.0-18.0); BG VENT MODE ROOM AIR
== END 2020-04-15 15:29 | disposition home health service (06) | DRG 163 ==
LOC: ER 09:22 → 5EST 11:11 → EDBEDREQTM 11:30 → EDBEDREQ 11:30 → CVICU 04-12 14:18
PROVIDERS: ADMIT Family Medicine Adult Medicine; ATTEND Family Medicine Adult Medicine
PROC: 0W9B30Z Drainage of Left Pleural Cavity with Drainage Device, Percutaneous Approach (ICD-10-PCS; principal; 2020-04-11)
PROC: 0BNJ4ZZ Release Left Lower Lung Lobe, Percutaneous Endoscopic Approach (ICD-10-PCS; 2020-04-11)
PROC: 0BBN4ZX Excision of Right Pleura, Percutaneous Endoscopic Approach, Diagnostic (ICD-10-PCS; 2020-04-11)
DX: J90 Pleural effusion, not elsewhere classified (principal); J96.01 Acute respiratory failure with hypoxia; I50.33 Acute on chronic diastolic (congestive) heart failure; I31.3 Pericardial effusion (noninflammatory); N17.9 Acute kidney failure, unspecified; E44.0 Moderate protein-calorie malnutrition; I11.0 Hypertensive heart disease with heart failure; I27.81 Cor pulmonale (chronic); D64.9 Anemia, unspecified; E87.6 Hypokalemia; K74.69 Other cirrhosis of liver; D72.819 Decreased white blood cell count, unspecified; R94.5 Abnormal results of liver function studies; I48.91 Unspecified atrial fibrillation; Z20.822 Contact with and (suspected) exposure to COVID-19; T50.2X5A Adverse effect of carbonic-anhydrase inhibitors, benzothiadiazides and other diuretics, initial encounter; Y92.89 Other specified places as the place of occurrence of the external cause; Z68.23 Body mass index [BMI] 23.0-23.9, adult; Z79.899 Other long term (current) drug therapy; I95.9 Hypotension, unspecified
CPT/HCPCS: 36415; 36600; 71045; 71250; 80048; 80053; 80076; 82140; 82248; 82375; 82805; 82962; 83735; 83880; 84100; 84132; 84134; 84484; 85025; 86850; 86900; 87426; 88108; 88305; 88312; 93005; 93306; 94640; 96365; 97162; 97166; 97530; 99285; J0282; J0690; J0702; J1160; J1265; J1650; J1885; J1940; J2274; J2310; J2710; J3475; J3480; J3490; J7040; J7060; P9041; P9047

== ENCOUNTER → 2020-05-02 | Outpatient (CLI) | payer MEDICARE, MEDICAID ==
[~2020-05-02] MED LIST: APIX2.5T PO; DILT30TA38 PO; DOCU-150 PO; FURO-151 MT; LIDO700A30 TOP; SPIR25TA PO; SULF1TAB48 PO; TAMS-11 PO; TRAM50TA3 PO
== END | disposition home or self-care (01) ==
LOC: RAD 09:50
PROVIDERS: ATTEND Thoracic Surgery (Cardiothoracic Vascular Surgery)
DX: T79.7XXA Traumatic subcutaneous emphysema, initial encounter (principal); J91.8 Pleural effusion in other conditions classified elsewhere; X58.XXXA Exposure to other specified factors, initial encounter; Y93.89 Activity, other specified; Y92.89 Other specified places as the place of occurrence of the external cause; Y99.8 Other external cause status
CPT/HCPCS: 71045

== ENCOUNTER → 2020-05-12 | Outpatient (CLI) | payer MEDICARE, MEDICAID | END | disposition home or self-care (01) | LOC: RAD 09:24 | PROVIDERS: ATTEND Thoracic Surgery (Cardiothoracic Vascular Surgery) | DX: J90 Pleural effusion, not elsewhere classified (principal); I51.7 Cardiomegaly; S22.49XD Multiple fractures of ribs, unspecified side, subsequent encounter for fracture with routine healing; X58.XXXD Exposure to other specified factors, subsequent encounter | CPT/HCPCS: 71045 ==

== ENCOUNTER 2020-07-03 17:30 | Inpatient (IN) | payer MEDICARE, MEDICAID ==
[~2020-07-03] VITALS: Ht 172.7 cm; Wt 75.4 kg
[~2020-07-03 17:30] MED LIST changes: +P20 MT; +SENN1TAB35 PO
[2020-07-03 18:00] VITALS: BP 116/89
[2020-07-03] MEDS ORDERED: ONDANSETRON HCL 4MG TABLET PO PRN (19:45)
[2020-07-03] MEDS ORDERED: CLONIDINE 0.1MG TABLET PO PRN (19:45)
[2020-07-03] MEDS ORDERED: DEXTROSE 50% WATER 50ML SYRINGE IV PRN ×2 (19:45)
[2020-07-03] MEDS ORDERED: IPRATROPIUM/ALBUTEROL 0.5-3(2.5)MG/3ML NEB HHN PRN (19:45)
[2020-07-03] MEDS ORDERED: ACETAMINOPHEN 650MG SUPP PR PRN (19:45)
[2020-07-03] MEDS ORDERED: GUAIFENESIN-DM 200MG-20MG/10ML UDC PO PRN (19:45)
[2020-07-03] MEDS ORDERED: DIPHENHYDRAMINE 50MG/ML VIAL IV PRN (19:45)
[2020-07-03] MEDS ORDERED: GUAIFENESIN 200MG/10ML SUGAR FREE UDC PO PRN (19:45)
[2020-07-03 20:00] VITALS: BP_SYST 130; BP_SYST 140; BP_DIAS 66; BP_DIAS 68
[2020-07-03] MEDS: CEPHALEXIN 250MG CAPSULE PO SCH (21:20)
[2020-07-03] MEDS: DILTIAZEM HCL 30MG TABLET PO SCH (21:21)
[2020-07-04] MEDS: DILTIAZEM HCL 30MG TABLET PO SCH ×3 (05:55→21:25)
[2020-07-04] MEDS: FUROSEMIDE 40MG TABLET PO SCH ×2 (05:55→17:52)
[2020-07-04 06:05] LABS: CHLORIDE 110 mEq/L (98-107)
[2020-07-04 06:11] LABS: PHOSPHORUS 5.3 mg/dL (2.5-4.9)
[2020-07-04 06:27] LABS: HEMATOCRIT. 40.1 % (42.0-52.0); HEMOGLOBIN. 12.5 g/dL (14.0-18.0); MEAN CORPUSCULAR HEMOGLOBIN 28.1 pg (28.0-32.0); MEAN PLATELET VOLUME 9.1 fl (7.4-10.4); PLATELET 114 x1000/uL (130-400); RED BLOOD CELL COUNT 4.45 mill/uL (4.7-6.1); RED CELL DISTRIBUTION WIDTH 23.9 % (11.6-14.6)
[2020-07-04 07:59] VITALS: BP 120/82
[2020-07-04] MEDS: ZINC SULFATE 220 MG ( 50 ) CAPSULE PO SCH (08:46)
[2020-07-04] MEDS: SEVELAMER CARBONATE 800 MG TABLET PO SCH ×3 (08:46→17:52)
[2020-07-04] MEDS: DOCUSATE SODIUM 100MG CAPSULE PO PRN (08:48)
[2020-07-04] MEDS: ASCORBIC ACID 500 MG TABLET PO SCH (08:49)
[2020-07-04] MEDS: PREDNISONE 20MG TABLET PO SCH (08:52)
[2020-07-04] MEDS: CEPHALEXIN 250MG CAPSULE PO SCH ×2 (10:34→21:24)
[2020-07-04 11:56] VITALS: BP 119/79
[2020-07-04 13:52] LABS: NUCLEATED RED BLOOD CELLS 1 /100 WBC; PLATELET ESTIMATE SLIGHTLY DECREASED
[2020-07-04 16:33] LABS: CREATINE KINASE 90 IU/L (39-308)
[2020-07-04 20:00] VITALS: BP 123/73
[2020-07-05] MEDS: DILTIAZEM HCL 30MG TABLET PO SCH ×3 (06:27→21:55)
[2020-07-05] MEDS: FUROSEMIDE 40MG TABLET PO SCH ×2 (06:27→17:57)
[2020-07-05 07:16] LABS: HEMATOCRIT. 41.1 % (42.0-52.0); HEMOGLOBIN. 13.1 g/dL (14.0-18.0); MEAN CORPUSCULAR HEMOGLOBIN 28.3 pg (28.0-32.0); MEAN CORPUSCULAR VOLUME 89.1 fL (80.0-94.0); MEAN PLATELET VOLUME 9.5 fl (7.4-10.4); PLATELET 126 x1000/uL (130-400); RED BLOOD CELL COUNT 4.62 mill/uL (4.7-6.1); RED CELL DISTRIBUTION WIDTH 23.3 % (11.6-14.6)
[2020-07-05 07:37] LABS: PHOSPHORUS 5.6 mg/dL (2.5-4.9)
[2020-07-05 07:47] LABS: FERRITIN 125 ng/mL (22-322); PROSTRATE SPECIFIC AG TOTAL 0.38 ng/mL (0.0-4.0)
[2020-07-05 08:00] VITALS: BP 128/79
[2020-07-05 08:04] LABS: VITAMIN B12 SERUM > 2000.0 pg/mL (211-911)
[2020-07-05] MEDS: PREDNISONE 20MG TABLET PO SCH (09:00)
[2020-07-05] MEDS: ASCORBIC ACID 500 MG TABLET PO SCH (09:00)
[2020-07-05] MEDS: SEVELAMER CARBONATE 800 MG TABLET PO SCH ×3 (09:00→16:23)
[2020-07-05] MEDS: ZINC SULFATE 220 MG ( 50 ) CAPSULE PO SCH (09:00)
[2020-07-05] MEDS: CEPHALEXIN 250MG CAPSULE PO SCH ×2 (10:17→21:54)
[2020-07-05] MEDS ORDERED: ERGOCALCIFEROL 50000UNITS CAPSULE PO SCH (13:00)
[2020-07-05] MEDS: DOCUSATE SODIUM 100MG CAPSULE PO PRN (16:24)
[2020-07-05 20:00] VITALS: BP 101/57
[2020-07-06 03:35] LABS: CLARITY URINE CLOUDY (CLEAR); COLOR URINE ORANGE (YELLOW); KETONES URINE NEGATIVE (NEGATIVE); LEUKOCYTE ESTERASE URINE TRACE (NEGATIVE); NITRITE URINE NEGATIVE (NEGATIVE); OCCULT BLOOD URINE 3+ (NEGATIVE); PROTEIN URINE 2+ (NEGATIVE); SPECIFIC GRAVITY URINE 1.009 (1.005-1.030)
[2020-07-06] MEDS: FUROSEMIDE 40MG TABLET PO SCH ×2 (06:24→17:57)
[2020-07-06] MEDS: DILTIAZEM HCL 30MG TABLET PO SCH ×3 (06:25→21:46)
[2020-07-06 06:47] LABS: HEMATOCRIT. 38.2 % (42.0-52.0); HEMOGLOBIN. 12.6 g/dL (14.0-18.0); MEAN CORPUSCULAR HEMOGLOBIN 28.9 pg (28.0-32.0); MEAN CORPUSCULAR VOLUME 87.5 fL (80.0-94.0); MEAN PLATELET VOLUME 8.9 fl (7.4-10.4); PLATELET 99 x1000/uL (130-400); RED BLOOD CELL COUNT 4.37 mill/uL (4.7-6.1); RED CELL DISTRIBUTION WIDTH 22.4 % (11.6-14.6)
[2020-07-06 06:53] LABS: PHOSPHORUS 4.1 mg/dL (2.5-4.9)
[2020-07-06 06:57] LABS: T4 FREE 0.8 ng/dL (0.76-1.46)
[2020-07-06 08:00] VITALS: BP 117/67
[2020-07-06] MEDS: SEVELAMER CARBONATE 800 MG TABLET PO SCH ×3 (09:40→17:57)
[2020-07-06] MEDS: ASCORBIC ACID 500 MG TABLET PO SCH (09:41)
[2020-07-06] MEDS: CEPHALEXIN 250MG CAPSULE PO SCH (09:41)
[2020-07-06] MEDS: PREDNISONE 20MG TABLET PO SCH (09:41)
[2020-07-06] MEDS: ZINC SULFATE 220 MG ( 50 ) CAPSULE PO SCH (09:41)
[2020-07-06 14:28] LABS: NUCLEATED RED BLOOD CELLS 2 /100 WBC; PLATELET ESTIMATE NORMAL
[2020-07-06 19:55] LABS: PLATELET ESTIMATE DECREASED
[2020-07-06 20:00] VITALS: BP 124/71
[2020-07-06] MEDS: DOCUSATE SODIUM 100MG CAPSULE PO PRN (21:54)
[2020-07-07 06:31] LABS: BASOPHILS % 0.1 % (0.0-2.0); EOSINOPHILS % 0.2 % (0.0-5.0); HEMOGLOBIN. 11.7 g/dL (14.0-18.0); LYMPHOCYTES % 8.3 % (20.0-50.0); MEAN CORPUSCULAR HEMOGLOBIN 29.1 pg (28.0-32.0); MEAN CORPUSCULAR VOLUME 86.7 fL (80.0-94.0); MEAN PLATELET VOLUME 9.3 fl (7.4-10.4); MONOCYTES % 5.1 % (2.0-8.0); NEUTROPHILS % 86.3 % (40.0-76.0); PLATELET 96 x1000/uL (130-400); RED BLOOD CELL COUNT 4.03 mill/uL (4.7-6.1); RED CELL DISTRIBUTION WIDTH 21.7 % (11.6-14.6)
[2020-07-07] MEDS: FUROSEMIDE 40MG TABLET PO SCH ×2 (06:51→17:13)
[2020-07-07] MEDS: DILTIAZEM HCL 30MG TABLET PO SCH ×3 (06:51→23:16)
[2020-07-07 06:55] LABS: PHOSPHORUS 4.7 mg/dL (2.5-4.9)
[2020-07-07 07:51] VITALS: BP 117/71
[2020-07-07] MEDS: PREDNISONE 20MG TABLET PO SCH (08:39)
[2020-07-07] MEDS: ASCORBIC ACID 500 MG TABLET PO SCH (08:39)
[2020-07-07] MEDS: ZINC SULFATE 220 MG ( 50 ) CAPSULE PO SCH (08:39)
[2020-07-07] MEDS: SEVELAMER CARBONATE 800 MG TABLET PO SCH ×3 (08:39→17:12)
[2020-07-07 10:29] VITALS: BP_SYST 106; BP_SYST 119; BP_DIAS 65; BP_DIAS 68
[2020-07-07 12:53] VITALS: BP_SYST 113; BP_DIAS 6; BP_DIAS 66
[2020-07-07] MEDS: DOCUSATE SODIUM 100MG CAPSULE PO PRN (17:13)
[2020-07-07 20:00] VITALS: BP 129/74
[2020-07-07] MEDS: LACTULOSE 20G/30ML UDC PO SCH (23:15)
[2020-07-08] VITALS: BP 123/79
[2020-07-08] MEDS: LACTULOSE 20G/30ML UDC PO SCH ×4 (04:07→17:56)
[2020-07-08] MEDS: FUROSEMIDE 40MG TABLET PO SCH ×2 (05:27→17:55)
[2020-07-08] MEDS: DILTIAZEM HCL 30MG TABLET PO SCH ×3 (05:28→22:04)
[2020-07-08 07:59] VITALS: BP 121/74
[2020-07-08] MEDS: SEVELAMER CARBONATE 800 MG TABLET PO SCH ×3 (08:50→17:55)
[2020-07-08] MEDS: PREDNISONE 20MG TABLET PO SCH (08:50)
[2020-07-08] MEDS: ZINC SULFATE 220 MG ( 50 ) CAPSULE PO SCH (08:51)
[2020-07-08] MEDS: DOCUSATE SODIUM 100MG CAPSULE PO PRN ×2 (08:51→17:55)
[2020-07-08] MEDS: ASCORBIC ACID 500 MG TABLET PO SCH (08:51)
[2020-07-08 10:21] LABS: BASOPHILS % 0.3 % (0.0-2.0); EOSINOPHILS % 0.4 % (0.0-5.0); HEMOGLOBIN. 12.1 g/dL (14.0-18.0); LYMPHOCYTES % 7.6 % (20.0-50.0); MEAN CORPUSCULAR HEMOGLOBIN 29.4 pg (28.0-32.0); MEAN CORPUSCULAR VOLUME 87.7 fL (80.0-94.0); MEAN PLATELET VOLUME 8.8 fl (7.4-10.4); MONOCYTES % 5.1 % (2.0-8.0); NEUTROPHILS % 86.6 % (40.0-76.0); PLATELET 127 x1000/uL (130-400); RED BLOOD CELL COUNT 4.11 mill/uL (4.7-6.1); RED CELL DISTRIBUTION WIDTH 21.9 % (11.6-14.6)
[2020-07-08 14:00] VITALS: BP 112/64
[2020-07-08 17:06] LABS: 25-HYDROXY VITAMIN D3 25 ng/mL (.)
[2020-07-08 20:00] VITALS: BP 114/46
[2020-07-09] MEDS: DILTIAZEM HCL 30MG TABLET PO SCH ×3 (06:00→21:10)
[2020-07-09 07:02] LABS: HEMOGLOBIN. 12.6 g/dL (14.0-18.0); MEAN CORPUSCULAR HEMOGLOBIN 29.3 pg (28.0-32.0); MEAN CORPUSCULAR VOLUME 88.6 fL (80.0-94.0); MEAN PLATELET VOLUME 8.9 fl (7.4-10.4); PLATELET 119 x1000/uL (130-400); RED BLOOD CELL COUNT 4.29 mill/uL (4.7-6.1); RED CELL DISTRIBUTION WIDTH 21.6 % (11.6-14.6)
[2020-07-09] MEDS: FUROSEMIDE 40MG TABLET PO SCH ×2 (07:26→17:00)
[2020-07-09 08:00] VITALS: BP 109/74
[2020-07-09] MEDS: ASCORBIC ACID 500 MG TABLET PO SCH (08:17)
[2020-07-09] MEDS: PREDNISONE 20MG TABLET PO SCH (08:17)
[2020-07-09] MEDS: DOCUSATE SODIUM 100MG CAPSULE PO PRN (08:17)
[2020-07-09] MEDS: ZINC SULFATE 220 MG ( 50 ) CAPSULE PO SCH (08:17)
[2020-07-09] MEDS: SEVELAMER CARBONATE 800 MG TABLET PO SCH ×3 (08:17→16:38)
[2020-07-09] MEDS: ACETAMINOPHEN 650MG/20.3ML UDC PO PRN (10:40)
[2020-07-09 13:01] VITALS: BP_SYST 110; BP_DIAS 56; BP_DIAS 64
[2020-07-09 14:52] LABS: PLATELET ESTIMATE DECREASED
[2020-07-09 20:00] VITALS: BP 105/60
[2020-07-09] MEDS: MAGNESIUM/ALUMINUM HYDROXIDE/SIMETHICONE 30ML UDC PO PRN (21:48)
[2020-07-10] MEDS: FUROSEMIDE 40MG TABLET PO SCH ×2 (05:47→17:12)
[2020-07-10] MEDS: DILTIAZEM HCL 30MG TABLET PO SCH ×2 (05:48→13:04)
[2020-07-10 07:39] VITALS: BP 105/66
[2020-07-10] MEDS: PREDNISONE 20MG TABLET PO SCH (08:21)
[2020-07-10] MEDS: SEVELAMER CARBONATE 800 MG TABLET PO SCH ×3 (08:21→16:50)
[2020-07-10] MEDS: ASCORBIC ACID 500 MG TABLET PO SCH (08:21)
[2020-07-10] MEDS: ZINC SULFATE 220 MG ( 50 ) CAPSULE PO SCH (08:21)
[2020-07-10] MEDS: DOCUSATE SODIUM 100MG CAPSULE PO PRN (08:21)
[2020-07-10] MEDS: LACTULOSE 20G/30ML UDC PO SCH ×3 (08:24→15:20)
[2020-07-10 12:47] VITALS: BP 107/71
[2020-07-10] MEDS: DOCUSATE SODIUM 100MG CAPSULE PO SCH (16:50)
[2020-07-10] MEDS ORDERED: NA PHOS,M-B/NA PHOS,DI-BA ENEMA 118ML PR NR (17:00)
[2020-07-10 20:00] VITALS: BP 102/60
[2020-07-10] MEDS: CARVEDILOL 3.125 MG TABLET PO SCH (21:00)
[2020-07-10] MEDS: POLYETHYLENE GLYCOL 3350 (17GM) 1 DOSE PACK PO SCH (21:00)
[2020-07-11] MEDS: FUROSEMIDE 40MG TABLET PO SCH ×2 (06:28→17:54)
[2020-07-11 06:29] VITALS: BP 129/70
[2020-07-11 08:00] VITALS: BP 117/72
[2020-07-11] MEDS: DOCUSATE SODIUM 100MG CAPSULE PO SCH ×2 (09:12→17:50)
[2020-07-11] MEDS: ZINC SULFATE 220 MG ( 50 ) CAPSULE PO SCH (09:12)
[2020-07-11] MEDS: CARVEDILOL 3.125 MG TABLET PO SCH ×2 (09:12→21:00)
[2020-07-11] MEDS: ASCORBIC ACID 500 MG TABLET PO SCH (09:13)
[2020-07-11] MEDS: PREDNISONE 20MG TABLET PO SCH (09:13)
[2020-07-11] MEDS: SEVELAMER CARBONATE 800 MG TABLET PO SCH ×3 (09:13→17:50)
[2020-07-11 11:24] LABS: BASOPHILS % 0.1 % (0.0-2.0); EOSINOPHILS % 0.5 % (0.0-5.0); HEMATOCRIT. 37.1 % (42.0-52.0); LYMPHOCYTES % 9.1 % (20.0-50.0); MEAN CORPUSCULAR VOLUME 89.6 fL (80.0-94.0); MEAN PLATELET VOLUME 8.4 fl (7.4-10.4); MONOCYTES % 6.8 % (2.0-8.0); NEUTROPHILS % 83.5 % (40.0-76.0); PLATELET 159 x1000/uL (130-400); RED BLOOD CELL COUNT 4.15 mill/uL (4.7-6.1); RED CELL DISTRIBUTION WIDTH 21.1 % (11.6-14.6)
[2020-07-11 12:26] LABS: CHLORIDE 99 mEq/L (98-107)
[2020-07-11 20:00] VITALS: BP 110/51
[2020-07-11] MEDS: POLYETHYLENE GLYCOL 3350 (17GM) 1 DOSE PACK PO SCH (22:06)
[2020-07-11] MEDS: DOCUSATE SODIUM 100MG CAPSULE PO PRN (23:43)
[2020-07-12] MEDS: FUROSEMIDE 40MG TABLET PO SCH ×2 (05:35→17:37)
[2020-07-12 07:30] LABS: BASOPHILS % 0.1 % (0.0-2.0); EOSINOPHILS % 0.2 % (0.0-5.0); HEMOGLOBIN. 11.8 g/dL (14.0-18.0); LYMPHOCYTES % 12.1 % (20.0-50.0); MEAN CORPUSCULAR HEMOGLOBIN 29.4 pg (28.0-32.0); MEAN CORPUSCULAR VOLUME 89.6 fL (80.0-94.0); MEAN PLATELET VOLUME 8.8 fl (7.4-10.4); MONOCYTES % 6.5 % (2.0-8.0); NEUTROPHILS % 81.1 % (40.0-76.0); PLATELET 130 x1000/uL (130-400); RED BLOOD CELL COUNT 4.02 mill/uL (4.7-6.1); RED CELL DISTRIBUTION WIDTH 21.4 % (11.6-14.6)
[2020-07-12 08:00] VITALS: BP 109/77
[2020-07-12 08:00] LABS: PHOSPHORUS 4.9 mg/dL (2.5-4.9)
[2020-07-12] MEDS: CARVEDILOL 3.125 MG TABLET PO SCH ×2 (09:00→21:00)
[2020-07-12] MEDS ORDERED: ERGOCALCIFEROL 50000UNITS CAPSULE PO SCH (09:00)
[2020-07-12] MEDS: SEVELAMER CARBONATE 800 MG TABLET PO SCH ×3 (09:17→17:37)
[2020-07-12] MEDS: DOCUSATE SODIUM 100MG CAPSULE PO SCH ×2 (09:17→17:37)
[2020-07-12] MEDS: PREDNISONE 20MG TABLET PO SCH (09:17)
[2020-07-12] MEDS: ZINC SULFATE 220 MG ( 50 ) CAPSULE PO SCH (09:17)
[2020-07-12] MEDS: ASCORBIC ACID 500 MG TABLET PO SCH (09:18)
[2020-07-12 20:55] VITALS: BP 111/71
[2020-07-12] MEDS: POLYETHYLENE GLYCOL 3350 (17GM) 1 DOSE PACK PO SCH (21:00)
[2020-07-13] MEDS: FUROSEMIDE 40MG TABLET PO SCH ×2 (06:09→18:23)
[2020-07-13 07:04] LABS: BASOPHILS % 0.5 % (0.0-2.0); EOSINOPHILS % 0.3 % (0.0-5.0); HEMATOCRIT. 37.9 % (42.0-52.0); HEMOGLOBIN. 12.5 g/dL (14.0-18.0); LYMPHOCYTES % 11.1 % (20.0-50.0); MEAN CORPUSCULAR HEMOGLOBIN 29.6 pg (28.0-32.0); MEAN PLATELET VOLUME 8.6 fl (7.4-10.4); MONOCYTES % 7.4 % (2.0-8.0); NEUTROPHILS % 80.7 % (40.0-76.0); PLATELET 130 x1000/uL (130-400); RED BLOOD CELL COUNT 4.21 mill/uL (4.7-6.1); RED CELL DISTRIBUTION WIDTH 20.9 % (11.6-14.6)
[2020-07-13 07:21] LABS: PHOSPHORUS 3.9 mg/dL (2.5-4.9)
[2020-07-13] MEDS: LEVOTHYROXINE SODIUM 25MCG TABLET PO SCH (08:43)
[2020-07-13] MEDS: DOCUSATE SODIUM 100MG CAPSULE PO SCH ×2 (08:44→18:23)
[2020-07-13] MEDS: ZINC SULFATE 220 MG ( 50 ) CAPSULE PO SCH (08:55)
[2020-07-13] MEDS: SEVELAMER CARBONATE 800 MG TABLET PO SCH ×3 (08:55→18:23)
[2020-07-13] MEDS: CARVEDILOL 3.125 MG TABLET PO SCH ×2 (08:55→21:00)
[2020-07-13] MEDS: PREDNISONE 20MG TABLET PO SCH (08:55)
[2020-07-13] MEDS: ASCORBIC ACID 500 MG TABLET PO SCH (08:56)
[2020-07-13] MEDS: ACETAMINOPHEN 650MG/20.3ML UDC PO PRN (08:56)
[2020-07-13] MEDS: MAGNESIUM/ALUMINUM HYDROXIDE/SIMETHICONE 30ML UDC PO PRN (14:51)
[2020-07-13 20:00] VITALS: BP 108/66
[2020-07-13] MEDS: POLYETHYLENE GLYCOL 3350 (17GM) 1 DOSE PACK PO SCH (22:05)
[2020-07-14] MEDS: LEVOTHYROXINE SODIUM 25MCG TABLET PO SCH (06:39)
[2020-07-14] MEDS: FUROSEMIDE 40MG TABLET PO SCH (06:39)
[2020-07-14 08:00] VITALS: BP 103/70
[2020-07-14] MEDS: SEVELAMER CARBONATE 800 MG TABLET PO SCH (08:30)
[2020-07-14] MEDS: DOCUSATE SODIUM 100MG CAPSULE PO SCH (08:30)
[2020-07-14] MEDS: ASCORBIC ACID 500 MG TABLET PO SCH (08:30)
[2020-07-14] MEDS: ZINC SULFATE 220 MG ( 50 ) CAPSULE PO SCH (08:30)
[2020-07-14] MEDS: PREDNISONE 20MG TABLET PO SCH (08:30)
[2020-07-14] MEDS: CARVEDILOL 3.125 MG TABLET PO SCH (08:31)
[2020-07-14 09:26] VITALS: BP 103/70
[2020-07-14] MEDS ORDERED: LEVO25TA7 PO (11:40)
[2020-07-14] MEDS ORDERED: COR3 PO (11:40)
[2020-07-14] MEDS ORDERED: FURO40TA5 PO (11:40)
== END 2020-07-14 12:18 | disposition home health service (06) | DRG 947 ==
PROVIDERS: ADMIT Physical Medicine & Rehabilitation Spinal Cord Injury Medicine; ATTEND Family Medicine Adult Medicine
PROC: 5A1D70Z Performance of Urinary Filtration, Intermittent, Less than 6 Hours Per Day (ICD-10-PCS; principal; 2020-07-04)
PROC: 5A1D70Z Performance of Urinary Filtration, Intermittent, Less than 6 Hours Per Day (ICD-10-PCS; 2020-07-06)
PROC: 5A1D70Z Performance of Urinary Filtration, Intermittent, Less than 6 Hours Per Day (ICD-10-PCS; 2020-07-08)
PROC: 5A1D70Z Performance of Urinary Filtration, Intermittent, Less than 6 Hours Per Day (ICD-10-PCS; 2020-07-12)
DX: R53.81 Other malaise (principal); L89.313 Pressure ulcer of right buttock, stage 3; I50.33 Acute on chronic diastolic (congestive) heart failure; E43 Unspecified severe protein-calorie malnutrition; N18.6 End stage renal disease; J96.00 Acute respiratory failure, unspecified whether with hypoxia or hypercapnia; I13.2 Hypertensive heart and chronic kidney disease with heart failure and with stage 5 chronic kidney disease, or end stage renal disease; E44.0 Moderate protein-calorie malnutrition; N17.9 Acute kidney failure, unspecified; E87.1 Hypo-osmolality and hyponatremia; R18.8 Other ascites; N39.0 Urinary tract infection, site not specified; F03.90 Unspecified dementia, unspecified severity, without behavioral disturbance, psychotic disturbance, mood disturbance, and anxiety; F39 Unspecified mood [affective] disorder; I27.29 Other secondary pulmonary hypertension; I34.0 Nonrheumatic mitral (valve) insufficiency; I48.91 Unspecified atrial fibrillation; R29.6 Repeated falls; N40.0 Benign prostatic hyperplasia without lower urinary tract symptoms; K74.60 Unspecified cirrhosis of liver; E55.9 Vitamin D deficiency, unspecified; E78.00 Pure hypercholesterolemia, unspecified; K40.20 Bilateral inguinal hernia, without obstruction or gangrene, not specified as recurrent; K59.00 Constipation, unspecified; K21.9 Gastro-esophageal reflux disease without esophagitis; M48.061 Spinal stenosis, lumbar region without neurogenic claudication; Z20.822 Contact with and (suspected) exposure to COVID-19; M51.36 Other intervertebral disc degeneration, lumbar region; G89.29 Other chronic pain; M54.5 Low back pain; R26.9 Unspecified abnormalities of gait and mobility; R23.3 Spontaneous ecchymoses; E21.1 Secondary hyperparathyroidism, not elsewhere classified; Z79.01 Long term (current) use of anticoagulants; Z82.49 Family history of ischemic heart disease and other diseases of the circulatory system; Z99.2 Dependence on renal dialysis; Z56.0 Unemployment, unspecified
CPT/HCPCS: 36415; 80048; 80053; 81003; 82040; 82306; 82533; 82550; 82607; 82728; 82746; 83540; 83550; 83735; 84100; 84134; 84153; 84439; 84443; 84481; 85025; 86376; 92523; 92610; 93970; 97110; 97112; 97116; 97162; 97166; 97530; 97535; J7512; U0003; U0005; G0103

== ENCOUNTER 2020-07-29 22:13 | Inpatient (IN) | payer MEDICARE, MEDICAID ==
[~2020-07-29] VITALS: Ht 162.6 cm; Wt 70.6 kg
[~2020-07-29 22:13] MED LIST changes: +COR3 PO; +FURO40TA5 PO; +LEVO25TA7 PO
[2020-07-29] MEDS ORDERED: PIPERACILLIN/TAZ 3.375G PREMIX 50 ML IV ONE (23:15)
[2020-07-29] MEDS ORDERED: VANCOMYCIN 1 G PREMIX 200 ML IV ONE (23:15)
[2020-07-30 00:02] LABS: EOSINOPHILS % 0.8 % (0.0-5.0); HEMATOCRIT. 36.5 % (42.0-52.0); HEMOGLOBIN. 11.8 g/dL (14.0-18.0); LYMPHOCYTES % 24.5 % (20.0-50.0); MEAN CORPUSCULAR HEMOGLOBIN 29.8 pg (28.0-32.0); MEAN CORPUSCULAR VOLUME 91.9 fL (80.0-94.0); MEAN PLATELET VOLUME 9.8 fl (7.4-10.4); MONOCYTES % 13.3 % (2.0-8.0); NEUTROPHILS % 60.4 % (40.0-76.0); PLATELET 108 x1000/uL (130-400); RED BLOOD CELL COUNT 3.97 mill/uL (4.7-6.1); RED CELL DISTRIBUTION WIDTH 20.8 % (11.6-14.6)
[2020-07-30 00:07] LABS: CHLORIDE 104 mEq/L (98-107)
[2020-07-30 00:08] LABS: CLARITY URINE CLOUDY (CLEAR); COLOR URINE RED (YELLOW); KETONES URINE NEGATIVE (NEGATIVE); LEUKOCYTE ESTERASE URINE 1+ (NEGATIVE); NITRITE URINE NEGATIVE (NEGATIVE); OCCULT BLOOD URINE 3+ (NEGATIVE); PH URINE 8.5 (4.5-8.0); PROTEIN URINE 3+ (NEGATIVE); SPECIFIC GRAVITY URINE 1.011 (1.005-1.030)
[2020-07-30 00:10] LABS: INR 1.4; PROTHROMBIN TIME 14.6 sec (9.6-11.0)
[2020-07-30] MEDS ORDERED: SODIUM CHLORIDE 0.9% 1,000 ML IV ONE (01:45)
[2020-07-30] MEDS ORDERED: ONDANSETRON HCL 4MG/2ML INJ IV PRN (08:30)
[2020-07-30] MEDS ORDERED: ACETAMINOPHEN 650MG SUPP PR PRN (08:30)
[2020-07-30] MEDS ORDERED: CLONIDINE 0.1MG TABLET PO PRN (08:30)
[2020-07-30] MEDS ORDERED: MAGNESIUM/ALUMINUM HYDROXIDE/SIMETHICONE 30ML UDC PO PRN (08:30)
[2020-07-30] MEDS ORDERED: DIPHENHYDRAMINE 50MG/ML VIAL IV PRN (08:30)
[2020-07-30] MEDS ORDERED: GUAIFENESIN 200MG/10ML SUGAR FREE UDC PO PRN (08:30)
[2020-07-30] MEDS ORDERED: HYDROCODONE/ACETAMINOPHEN 5/325MG TABLET PO PRN (08:30)
[2020-07-30] MEDS ORDERED: IPRATROPIUM/ALBUTEROL 0.5-3(2.5)MG/3ML NEB HHN PRN (08:30)
[2020-07-30] MEDS ORDERED: ACETAMINOPHEN 325MG TABLET PO PRN (08:30)
[2020-07-30] MEDS ORDERED: DOCUSATE SODIUM 100MG CAPSULE PO PRN (08:30)
[2020-07-30] MEDS ORDERED: MORPHINE SULFATE 2 MG/ML CPJ (NOT FOR IM USE) IV PRN (08:30)
[2020-07-30 09:28] VITALS: BP 108/69
[2020-07-30 12:00] VITALS: BP 111/75
[2020-07-30 12:19] LABS: BASOPHILS % 0.5 % (0.0-2.0); EOSINOPHILS % 0.5 % (0.0-5.0); HEMATOCRIT. 36.7 % (42.0-52.0); LYMPHOCYTES % 26.9 % (20.0-50.0); MEAN CORPUSCULAR HEMOGLOBIN 30.5 pg (28.0-32.0); MEAN CORPUSCULAR VOLUME 93.1 fL (80.0-94.0); MEAN PLATELET VOLUME 10.4 fl (7.4-10.4); MONOCYTES % 11.2 % (2.0-8.0); NEUTROPHILS % 60.9 % (40.0-76.0); PLATELET 107 x1000/uL (130-400); RED BLOOD CELL COUNT 3.94 mill/uL (4.7-6.1); RED CELL DISTRIBUTION WIDTH 20.5 % (11.6-14.6)
[2020-07-30 12:26] LABS: CHLORIDE 104 mEq/L (98-107)
[2020-07-30 12:34] LABS: PHOSPHORUS 5.9 mg/dL (2.5-4.9)
[2020-07-30 12:35] LABS: LDL CHOLESTEROL 89 mg/dL (5-100)
[2020-07-30 12:36] LABS: HDL CHOLESTEROL 34 mg/dL (40-59)
[2020-07-30 16:00] VITALS: BP 116/77
[2020-07-30] MEDS ORDERED: APIXABAN 5 MG TABLET PO SCH (18:45)
[2020-07-30 20:19] VITALS: BP 117/78
[2020-07-30] MEDS ORDERED: VANCOMYCIN 1 G PREMIX 200 ML IV SCH (21:00)
[2020-07-30] MEDS ORDERED: PIPERACILLIN/TAZOBACTAM 3.375 G in DEXT 5% WATER 100 ML IV SCH (21:00)
[2020-07-31] MEDS ORDERED: GUAIFENESIN 200MG/10ML SUGAR FREE UDC PO PRN (00:15)
[2020-07-31 00:16] VITALS: BP 99/63
[2020-07-31] MEDS: PIPERACILLIN/TAZOBACTAM 2.25 G in DEXTROSE 5% WATER 50 ML IV SCH ×3 (01:26→14:09)
[2020-07-31] MEDS: APIXABAN 2.5 MG TABLET PO SCH ×3 (01:27→22:40)
[2020-07-31 04:00] VITALS: BP 102/71
[2020-07-31] MEDS ORDERED: LEVOTHYROXINE SODIUM 25MCG TABLET PO SCH (07:40)
[2020-07-31] MEDS: FUROSEMIDE 40MG TABLET PO SCH (08:38)
[2020-07-31] MEDS: LEVOTHYROXINE SODIUM 50MCG TABLET PO SCH (08:39)
[2020-07-31 11:20] LABS: BASOPHILS % 0.8 % (0.0-2.0); EOSINOPHILS % 0.4 % (0.0-5.0); HEMATOCRIT. 34.9 % (42.0-52.0); HEMOGLOBIN. 11.5 g/dL (14.0-18.0); LYMPHOCYTES % 30.6 % (20.0-50.0); MEAN CORPUSCULAR HEMOGLOBIN 30.3 pg (28.0-32.0); MEAN CORPUSCULAR VOLUME 92.1 fL (80.0-94.0); MEAN PLATELET VOLUME 10.1 fl (7.4-10.4); NEUTROPHILS % 57.2 % (40.0-76.0); PLATELET 114 x1000/uL (130-400); RED BLOOD CELL COUNT 3.79 mill/uL (4.7-6.1); RED CELL DISTRIBUTION WIDTH 20.3 % (11.6-14.6)
[2020-07-31] MEDS ORDERED: LACTULOSE 20G/30ML UDC PO NR (17:45)
[2020-07-31 19:57] LABS: HEPATITIS B SURFACE ANTIGEN NEGATIVE
[2020-07-31 20:00] VITALS: BP 117/69
[2020-07-31 20:27] LABS: HEPATITIS A AB IGM NEGATIVE (NEGATIVE)
[2020-07-31] MEDS: CEFTAZIDIME PENTAHYDRATE 1 G in DEXTROSE 5% WATER 50 ML IV SCH (22:36)
[2020-08-01] VITALS: BP 128/72
[2020-08-01 04:00] VITALS: BP 120/85
[2020-08-01] MEDS: LEVOTHYROXINE SODIUM 50MCG TABLET PO SCH (06:06)
[2020-08-01 06:43] LABS: BASOPHILS % 0.6 % (0.0-2.0); EOSINOPHILS % 0.4 % (0.0-5.0); HEMATOCRIT. 38.3 % (42.0-52.0); HEMOGLOBIN. 12.5 g/dL (14.0-18.0); LYMPHOCYTES % 29.4 % (20.0-50.0); MEAN CORPUSCULAR HEMOGLOBIN 30.1 pg (28.0-32.0); MEAN CORPUSCULAR VOLUME 92.3 fL (80.0-94.0); MEAN PLATELET VOLUME 10.3 fl (7.4-10.4); MONOCYTES % 10.2 % (2.0-8.0); NEUTROPHILS % 59.4 % (40.0-76.0); PLATELET 124 x1000/uL (130-400); RED BLOOD CELL COUNT 4.15 mill/uL (4.7-6.1); RED CELL DISTRIBUTION WIDTH 20.7 % (11.6-14.6)
[2020-08-01 06:58] LABS: CHLORIDE 103 mEq/L (98-107)
[2020-08-01 07:19] LABS: PHOSPHORUS 8.1 mg/dL (2.5-4.9)
[2020-08-01 08:00] VITALS: BP 117/91
[2020-08-01] MEDS: APIXABAN 2.5 MG TABLET PO SCH (08:50)
[2020-08-01] MEDS: FUROSEMIDE 40MG TABLET PO SCH (08:50)
[2020-08-01 12:00] VITALS: BP 110/79
[2020-08-01 16:00] VITALS: BP 119/84
[2020-08-01] MEDS: SEVELAMER CARBONATE 800 MG TABLET PO SCH (18:07)
[2020-08-01 20:00] VITALS: BP 130/87
[2020-08-01] MEDS: CEFTAZIDIME PENTAHYDRATE 1 G in DEXTROSE 5% WATER 50 ML IV SCH (22:47)
[2020-08-01] MEDS ORDERED: VANCOMYCIN 500 MG PREMIX 100 ML IV SCH (23:00)
[2020-08-02] VITALS: BP 116/76
[2020-08-02 04:00] VITALS: BP 118/82
[2020-08-02] MEDS: LEVOTHYROXINE SODIUM 50MCG TABLET PO SCH (06:46)
[2020-08-02] MEDS: SEVELAMER CARBONATE 800 MG TABLET PO SCH ×3 (06:46→17:51)
[2020-08-02 06:52] LABS: BASOPHILS % 0.6 % (0.0-2.0); EOSINOPHILS % 0.4 % (0.0-5.0); HEMATOCRIT. 38.1 % (42.0-52.0); HEMOGLOBIN. 12.4 g/dL (14.0-18.0); LYMPHOCYTES % 22.6 % (20.0-50.0); MEAN CORPUSCULAR HEMOGLOBIN 29.9 pg (28.0-32.0); MEAN CORPUSCULAR VOLUME 91.9 fL (80.0-94.0); MEAN PLATELET VOLUME 9.8 fl (7.4-10.4); MONOCYTES % 9.8 % (2.0-8.0); NEUTROPHILS % 66.6 % (40.0-76.0); PLATELET 131 x1000/uL (130-400); RED BLOOD CELL COUNT 4.14 mill/uL (4.7-6.1); RED CELL DISTRIBUTION WIDTH 20.5 % (11.6-14.6)
[2020-08-02 07:11] LABS: PHOSPHORUS 5.5 mg/dL (2.5-4.9)
[2020-08-02 07:14] LABS: T4 FREE 1.02 ng/dL (0.76-1.46)
[2020-08-02 08:00] VITALS: BP 111/77
[2020-08-02] MEDS: FUROSEMIDE 40MG TABLET PO SCH (09:18)
[2020-08-02 12:00] VITALS: BP 118/85
[2020-08-02 16:00] VITALS: BP 106/79
[2020-08-02 20:00] VITALS: BP 124/73
[2020-08-02] MEDS: CEFTAZIDIME PENTAHYDRATE 1 G in DEXTROSE 5% WATER 50 ML IV SCH (21:44)
[2020-08-03] VITALS: BP 113/78
[2020-08-03 04:00] VITALS: BP 108/77
[2020-08-03 06:35] LABS: PHOSPHORUS 6.4 mg/dL (2.5-4.9)
[2020-08-03 06:52] LABS: BASOPHILS % 0.6 % (0.0-2.0); EOSINOPHILS % 0.6 % (0.0-5.0); HEMATOCRIT. 34.7 % (42.0-52.0); HEMOGLOBIN. 11.5 g/dL (14.0-18.0); LYMPHOCYTES % 22.5 % (20.0-50.0); MEAN CORPUSCULAR VOLUME 90.9 fL (80.0-94.0); MEAN PLATELET VOLUME 9.7 fl (7.4-10.4); MONOCYTES % 13.6 % (2.0-8.0); NEUTROPHILS % 62.7 % (40.0-76.0); PLATELET 124 x1000/uL (130-400); RED BLOOD CELL COUNT 3.82 mill/uL (4.7-6.1); RED CELL DISTRIBUTION WIDTH 20.4 % (11.6-14.6)
[2020-08-03] MEDS: SEVELAMER CARBONATE 800 MG TABLET PO SCH ×3 (07:50→17:39)
[2020-08-03] MEDS: LEVOTHYROXINE SODIUM 50MCG TABLET PO SCH (07:50)
[2020-08-03 08:00] VITALS: BP 110/80
[2020-08-03] MEDS: FUROSEMIDE 40MG TABLET PO SCH (09:59)
[2020-08-03] MEDS: PREDNISONE 10MG TABLET PO SCH (13:07)
[2020-08-03 14:00] VITALS: BP 108/64
[2020-08-03 15:03] LABS: BG BASE EXCESS -2.4 mmol/L (-2.0-2.0); BG CARBOXYHEMOGLOBIN 0.8 % (0.5-1.5); BG DEOXYHEMOGLOBIN 4.8 % (0.0-5.0); BG FRACTION INSPIRED OXYGEN 21; BG HCO3 ACT 20.6 mmol/L (22.0-26.0); BG METHEMOGLOBIN 0.3 % (0.0-1.5); BG OXYGEN SATURATION 95.1 % (92.0-98.5); BG OXYHEMOGLOBIN 94.1 % (94.0-97.0); BG PCO2 30.5 mmHg (35.0-45.0); BG PH 7.448 (7.350-7.450); BG PO2 80.4 mmHg (75.0-100.0); BG SAMPLE SITE LEFT BRACHIAL; BG TOTAL HEMOGLOBIN 12.6 g/dL (12.0-18.0); BG VENT MODE ROOM AIR
[2020-08-03 20:00] VITALS: BP 110/71
[2020-08-03] MEDS: CEFTAZIDIME PENTAHYDRATE 1 G in DEXTROSE 5% WATER 50 ML IV SCH (21:14)
[2020-08-04] VITALS: BP 106/72
[2020-08-04 04:00] VITALS: BP 108/73
[2020-08-04] MEDS: LEVOTHYROXINE SODIUM 75MCG TABLET PO SCH (06:47)
[2020-08-04 06:49] LABS: BASOPHILS % 0.3 % (0.0-2.0); EOSINOPHILS % 0.2 % (0.0-5.0); HEMATOCRIT. 33.6 % (42.0-52.0); HEMOGLOBIN. 11.1 g/dL (14.0-18.0); LYMPHOCYTES % 15.6 % (20.0-50.0); MEAN CORPUSCULAR HEMOGLOBIN 30.3 pg (28.0-32.0); MEAN CORPUSCULAR VOLUME 91.6 fL (80.0-94.0); MEAN PLATELET VOLUME 9.4 fl (7.4-10.4); MONOCYTES % 10.1 % (2.0-8.0); NEUTROPHILS % 73.8 % (40.0-76.0); PLATELET 121 x1000/uL (130-400); RED BLOOD CELL COUNT 3.67 mill/uL (4.7-6.1); RED CELL DISTRIBUTION WIDTH 20.3 % (11.6-14.6)
[2020-08-04 07:54] LABS: CHLORIDE 109 mEq/L (98-107)
[2020-08-04 08:16] VITALS: BP 114/88
[2020-08-04 08:17] LABS: PHOSPHORUS 5.4 mg/dL (2.5-4.9)
[2020-08-04] MEDS: PREDNISONE 10MG TABLET PO SCH (08:58)
[2020-08-04] MEDS: SEVELAMER CARBONATE 800 MG TABLET PO SCH ×3 (08:58→17:37)
[2020-08-04] MEDS: FUROSEMIDE 40MG TABLET PO SCH (08:58)
[2020-08-04 12:37] VITALS: BP 109/78
[2020-08-04 16:10] VITALS: BP 117/77
[2020-08-04 17:06] LABS: HEPATITIS B SURFACE ANTIGEN NEGATIVE
[2020-08-04 17:36] LABS: HEPATITIS A AB IGM NEGATIVE (NEGATIVE)
[2020-08-04 20:30] VITALS: BP 121/75
[2020-08-04] MEDS ORDERED: FURO40TA5 PO (20:33)
[2020-08-04] MEDS ORDERED: LEVO25TA7 PO (20:33)
[2020-08-04] MEDS ORDERED: SEVE800T8 PO (20:33)
[2020-08-04] MEDS ORDERED: PRED10TA PO (20:33)
[2020-08-04] MEDS: CEFTAZIDIME PENTAHYDRATE 1 G in DEXTROSE 5% WATER 50 ML IV SCH (20:44)
[2020-08-05] VITALS: BP 127/81
[2020-08-05 04:00] VITALS: BP 118/81
[2020-08-05] MEDS: LEVOTHYROXINE SODIUM 75MCG TABLET PO SCH (06:24)
[2020-08-05 06:57] LABS: BASOPHILS % 0.4 % (0.0-2.0); EOSINOPHILS % 0.5 % (0.0-5.0); HEMATOCRIT. 35.6 % (42.0-52.0); HEMOGLOBIN. 11.6 g/dL (14.0-18.0); LYMPHOCYTES % 22.9 % (20.0-50.0); MEAN CORPUSCULAR HEMOGLOBIN 29.7 pg (28.0-32.0); MEAN CORPUSCULAR VOLUME 91.2 fL (80.0-94.0); MEAN PLATELET VOLUME 9.2 fl (7.4-10.4); NEUTROPHILS % 67.2 % (40.0-76.0); PLATELET 130 x1000/uL (130-400); RED CELL DISTRIBUTION WIDTH 20.5 % (11.6-14.6)
[2020-08-05 08:12] VITALS: BP 121/82
[2020-08-05] MEDS: SEVELAMER CARBONATE 800 MG TABLET PO SCH ×3 (08:24→14:35)
[2020-08-05] MEDS: PREDNISONE 10MG TABLET PO SCH ×2 (08:24→11:23)
[2020-08-05] MEDS: FUROSEMIDE 40MG TABLET PO SCH ×2 (08:24→11:23)
[2020-08-05] MEDS ORDERED: HEPARIN SODIUM 1,000 UNIT/1ML VIAL IV NR (09:15)
[2020-08-05 12:13] VITALS: BP 102/76
[2020-08-05 14:53] VITALS: BP 102/76
== END 2020-08-05 16:50 | disposition home or self-care (01) | DRG 291 ==
LOC: ER 22:13 → EDBEDREQTM 07-30 01:35 → EDBEDREQSVC 07-30 01:35 → EDBEDREQ 07-30 01:35 → ENRESERV 07-30 08:23 → 7WST 07-30 10:29 → 6WST 07-31 20:30
PROVIDERS: ADMIT Family Medicine Adult Medicine; ATTEND Family Medicine Adult Medicine
PROC: 5A1D70Z Performance of Urinary Filtration, Intermittent, Less than 6 Hours Per Day (ICD-10-PCS; principal; 2020-08-01)
PROC: 5A1D70Z Performance of Urinary Filtration, Intermittent, Less than 6 Hours Per Day (ICD-10-PCS; 2020-08-03)
PROC: 5A1D70Z Performance of Urinary Filtration, Intermittent, Less than 6 Hours Per Day (ICD-10-PCS; 2020-08-05)
DX: I13.2 Hypertensive heart and chronic kidney disease with heart failure and with stage 5 chronic kidney disease, or end stage renal disease (principal); J18.9 Pneumonia, unspecified organism; N18.6 End stage renal disease; I50.33 Acute on chronic diastolic (congestive) heart failure; J96.00 Acute respiratory failure, unspecified whether with hypoxia or hypercapnia; K76.7 Hepatorenal syndrome; G93.40 Encephalopathy, unspecified; J44.0 Chronic obstructive pulmonary disease with (acute) lower respiratory infection; D68.9 Coagulation defect, unspecified; E44.0 Moderate protein-calorie malnutrition; I31.3 Pericardial effusion (noninflammatory); I48.19 Other persistent atrial fibrillation; I85.10 Secondary esophageal varices without bleeding; N13.2 Hydronephrosis with renal and ureteral calculous obstruction; N17.9 Acute kidney failure, unspecified; I42.0 Dilated cardiomyopathy; D63.8 Anemia in other chronic diseases classified elsewhere; D69.6 Thrombocytopenia, unspecified; E03.9 Hypothyroidism, unspecified; I27.29 Other secondary pulmonary hypertension; K21.9 Gastro-esophageal reflux disease without esophagitis; K74.60 Unspecified cirrhosis of liver; K75.81 Nonalcoholic steatohepatitis (NASH); N40.0 Benign prostatic hyperplasia without lower urinary tract symptoms; R29.6 Repeated falls; Z20.822 Contact with and (suspected) exposure to COVID-19; I34.0 Nonrheumatic mitral (valve) insufficiency; R13.10 Dysphagia, unspecified; K59.00 Constipation, unspecified; E78.5 Hyperlipidemia, unspecified; Z79.01 Long term (current) use of anticoagulants; Z91.81 History of falling; Z99.2 Dependence on renal dialysis; Z68.26 Body mass index [BMI] 26.0-26.9, adult
CPT/HCPCS: 36415; 36600; 71045; 74176; 80048; 80053; 80061; 80202; 81003; 82140; 82375; 82805; 82962; 83605; 83735; 83880; 84100; 84134; 84145; 84439; 84443; 84481; 84484; 85025; 86705; 86709; 86803; 87340; 93005; 97162; 97166; 97530; 99285; J0713; J1644; J2543; J3370; J7040; J7060; J7512; U0003; U0005